=== PATIENT | male | born 1935 | race Caucasian/White ===

== ENCOUNTER → 2017-08-10 15:26 | Outpatient (CLI) | payer MEDICARE, BC, SELFPAY ==
[2017-08-10 18:08] LABS: AST(SGOT) 19 U/L (15-37); Alanine Aminotransfer ALT/SGPT 24 U/L (16-61); Albumin, Serum 3.9 g/dL (3.2-5.0); Alkaline Phosphatase 61 U/L (45-117); Bilirubin, Direct 0.22 mg/dL (0.00-0.30); Cholesterol 119 mg/dL (200); Globulin 2.8 g/dL (2.2-4.2); High Density Lipoprotein 64 mg/dL; Protein, Total 6.7 g/dL (6.4-8.2); Triglycerides 50 mg/dL; Very Low Density Lipoprotein 10 mg/dL (5-40)
== END ==
PROVIDERS: Family Provider Family Medicine; Visit Provider Family Medicine
DX: M19.90 Unspecified osteoarthritis, unspecified site (principal)
CPT/HCPCS: 36415; 80061; 80076

== ENCOUNTER 2019-01-14 12:52 | Inpatient (IN) | payer MEDICARE, BC, SELFPAY ==
[2019-01-14] VITALS (13 sets, daily range): BP systolic 87–106; BP diastolic 59–77; PULSE 48–68; RESP 15–24; TEMP 36.6–36.7; O2SAT 95–99; BMI 22.4; BMI 21.8
--- NOTE | 2019-01-14 13:21 | RAD_ITS ---
STUDY: X-RAY CHEST REASON FOR EXAM: Male, 83 years old. Shortness of breath and cough TECHNIQUE: PA and lateral views of the chest. COMPARISON: 2010 FINDINGS: EKG leads overlie the chest There are interstitial fibrotic changes of the lungs. There is no demonstrated pleural abnormality. Normal size heart. Normal mediastinum and brad. Normal visualized pulmonary arteries. Normal visualized aortic arch and descending thoracic aorta. There are diffuse degenerative changes of the visualized thoracic spine. Normal visualized ribs, clavicles, and shoulders. There is no demonstrated abnormality of the visualized soft tissue structures of the upper abdomen. RAD/Chest PA and Lateral IMPRESSION: Degenerative changes, as described above. No demonstrated acute cardiopulmonary process. Electronically Signed: Byron Lyle MD at 13:36 EDT , Service support ,
[2019-01-14 13:27] LABS: Absolute Lymphocyte Count 0.47 X10^3/uL (0.83-4.51); Basophil# 0.01 X10^3/uL; Basophil% 0.1 % (0-1); Hematocrit 36.1 % (40-54); Hemoglobin 12.4 g/dL (13.0-16.5); Lymphocyte # 0.47 X10^3/ul (4.0); Mean Corp Hgb Conc 34.3 g/dL (32-36); Mean Corpuscular Hgb 32.2 pg (27.0-32.0); Mean Corpuscular Volume 93.8 fL (80-94); Mean Platelet Vol. 11.2 fl (6.2-12.0); Monocyte# 1.21 X10^3/uL; Monocyte% 7.7 % (0-10); NRBC Flagged by Analyzer 0 % (0-5); Neutrophil # 13.96 X10^3/uL (2.7-7.7); Neutrophil % 88.8 % (47-70); POSITIVE DIFFERENTIAL YES; Platelet Count 135 K/mm3 (150-450); RBC Distribution Width SD 47.9 fl (35.1-43.9); Red Blood Count 3.85 M/mm3 (4.6-6.2); White Blood Count 15.7 K/mm3 (4.4-11.0)
[2019-01-14 13:35] LABS: Anion Gap 7 (5-15); BUN 45 mg/dL (7-18); BUN/Creat Ratio 24.5 RATIO (10-20); Calcium,Total 9.3 mg/dL (8.5-10.1); Chloride 104 mmol/L (98-107); Creatinine, Serum 1.84 mg/dL (0.70-1.30); EST Glomerular Filtration Rate 37 mL/min (>60); Est Glom Filt Rate - Afr Amer 45 mL/min (>60); Estimated Creatinine Clearance 29.73 ml/min; Glucose 140 mg/dL (74-106); Potassium 4.6 mmol/L (3.5-5.1); Sodium Level 135 mmol/L (136-145)
[2019-01-14 13:43] LABS: Lactic Acid 3.1 mmol/L (0.4-2.0)
--- NOTE | 2019-01-14 13:57 | EKG12_ITS ---
Test Reason : Blood Pressure : / mmHG Vent. Rate : 049 BPM Atrial Rate : 049 BPM P-R Int : 180 ms QRS Dur : 046 ms QT Int : 432 ms P-R-T Axes : 046 -44 -07 degrees QTc Int : 390 ms Sinus bradycardia with frequent Premature ventricular complexes in a pattern of bigeminy Left axis deviation Low voltage QRS Possible Lateral infarct , age undetermined Inferior infarct , age undetermined T wave abnormality, consider anterior ischemia Abnormal ECG Confirmed by FLORENTINO FUNES, ALFONZO ([id number]), make up editor JALEN LOERA ([id number]) on 01/17/2019 1:50:26 PM Referred By: Dieter Mcleod Confirmed By:NARENDRA GOOD MD
[2019-01-14 14:00] LABS: Differential Indicated SCAN CRITERIA MET
[2019-01-14 14:03] LABS: Platelet Estimate SLT DEC (ADEQ); Red Cell Morphology NORM C+C NORMAL (NORM C&C)
[2019-01-14] MEDS: 0.9% Normal Saline 1,000 ML 999 ML IV ×3 (14:09→16:18)
[2019-01-14 14:19] LABS: AST(SGOT) 225 U/L (15-37); Alanine Aminotransfer ALT/SGPT 73 U/L (16-61); Albumin, Serum 3.4 g/dL (3.2-5.0); Alkaline Phosphatase 76 U/L (45-117); Bilirubin, Direct 0.48 mg/dL (0.00-0.30); Protein, Total 6.4 g/dL (6.4-8.2)
[2019-01-14 14:39] LABS: Bacteria 0 SEEN /hpf (None Seen); Mucous, Urine 0 SEEN /hpf (<or=2+); Squamous Epithelial Cells - UA 0 SEEN /hpf (0-5); White Blood Cells 0 SEEN /hpf (0-5)
[2019-01-14 14:42] LABS: Color, Urine Yellow (Yellow); Glucose, Dipstick Normal (Normal); Ketone-Dipstick 5 mg/dl (Negative); Leukocyte Esterase-Dipstick 25 /ul (Negative); Nitrite-Dipstick Negative (Negative); Occult Blood-Urine Negative /ul (Negative); Protein-Dipstick 30 mg/dl (Negative); Specific Gravity, Urine 1.025 (1.002-1.030); Urine Clarity Clear (Clear); Urine Urobilinogen 1 mg/dl (Normal)
--- NOTE | 2019-01-14 14:43 | ED.RN ---
DR MANRIQUE NOTIFIED OF TROPONIN RESULT
[2019-01-14 14:49] LABS: Urine Bilirubin Dipstick 1 mg/dL (Negative)
[2019-01-14 14:54] LABS: Red Blood Cells-Urine 0-5 SEEN /hpf (0-5)
--- NOTE | 2019-01-14 15:46 | NURSING ---
DR NICK MANRIQUE
--- NOTE | 2019-01-14 15:55 | NURSING ---
108 NICK CATHERINE, DEHYDRATION
--- NOTE | 2019-01-14 16:00 | ED.VISSUMM ---
- ER Visit Summary Date of Service: 01/14/19 Chief Complaint: Weakness History of Present Illness: The patient is a 83 M who presents emerged department with generalized weakness. Patient lives at home with his he uses a walker and most recently has been working to get a knee replacement in [place]. On Thursday he went down to have presurgical testing. He had an EKG was told that this was abnormal that he should follow-up with cardiology talk about a stress test. He was then called yesterday and informed that his labs look like he showed dehydration they recommended he receive some IV fluids. On the way back from [place] 2 days ago he began to feel poorly. Since that time has had increasing difficulty getting out of bed. He has not been eating and drinking well. He denies any chest pain. His chronic neck pain chronic arm pain and chronic knee pain. No fevers. No shortness of breath or vomiting. Physical Examination: Afebrile heart rate of 57 respirations are 18 blood pressure 103/62 pulse ox 95% on room air Gen: Well-nourished well-developed Head: Normocephalic atraumatic Eyes: Perrl EOMI ENT: TMs clear no rhinorrhea moist mucous membranes Neck: Supple no lymphadenopathy no JVD nontender CVS: Regular bradycardic rhythm heart sounds are distant Respiratory: No distress clear to auscultation bilaterally chest nontender Abdomen: Soft nontender nondistended normal bowel sounds no masses Back: Nontender Extremity: Nontender no edema 3-second capillary refill Skin: Appears pale no rash Neuro: alert orientated ?3 CN II-XII intact normal strength sensation Test Results: EKG shows a sinus bradycardia with frequent ectopy. Low voltage. Q waves with inverted T waves inferiorly. White count 15.7 hemoglobin 12.4 BUN 45 creatinine 1.84. Lactic acid 3.1. Troponin 43.9. Chest x-ray negative. Emergency Department Course and Treatment: Patient received IV fluids. I discussed the case with cardiology. They recommended continued hydration as well as heparin drip. He has no rectal bleeding. Alethea case with Dr. Moraes from medicine who will be admitting. Family has been updated. Impression: 1. NSTEMI 2. Dehydration 3. Acute kidney injury This note was generated with [employer] dictation software. It may contain incorrect words, spelling, and punctuation that were not noted in review of the chart prior to signing ED Disposition - Plan for ED Patient: Referrals: Wale Obregon [Primary Care Provider] -
[2019-01-14] MEDS: Heparin Injection (Vial) 5,000 UNIT/ML VIAL 4500 UNIT IV (16:15)
[2019-01-14] MEDS: HEPARIN/D5w 25,000 UNITS 25,000 UNITS/250 ML IV.SOLN. 10 UNITS IV (16:15)
[2019-01-14 16:21] LABS: International Normalized Ratio 1.3; Prothrombin Time (Protime)PT. 16.2 SECONDS (11.7-14.9)
[2019-01-14 16:22] LABS: Partial Thromboplast Time 34.6 Seconds (24.1-36.2)
--- NOTE | 2019-01-14 16:38 | HP.PCM_ITS ---
Problem List (1) NSTEMI (non-ST elevated myocardial infarction) Status: Acute (2) KELLIE (acute kidney injury) Status: Acute History of Present Illness Date of Admission: 01/14/19 Chief Complaint: weakness The patient is a 83 year old M for the past 2 to 3 days, has been feeling weak. Went had some lab work performed at outside facility and had a notified him today that patient should come to the hospital because of his kidney function was abnormal. Presented to the emergency room and patient's creatinine was measured at 1.84, and had a creatinine of 1.31 from December 25, 2016. No additional blood work in the interim. Patient also was found to have a troponin of 43. Cardiology, with Dr. Hobson, was notified and advised patient being placed on heparin drip and would be seen by cardiology the following day. Patient is not having any chest pain. Patient is a poor historian so much of the history is obtained through the family as well as emergency room physician. [] Past Medical History Medical History: Medical History (Last Updated 01/14/19 @ 16:41 by Dieter Mcleod DO) Osteoarthritis M19.90 Allergies No Known Allergies Allergy (Verified 01/14/19 12:59) Home Medications: Ambulatory Orders Medication Instructions Recorded Aspirin [Aspir 81] 81 mg PO DAILY 01/14/19 Ketoconazole 1 applic TP UD 01/14/19 Temazepam 30 mg PO QHS 01/14/19 Terazosin HCl 5 mg PO DAILY 01/14/19 Lives: Spouse/ Significant Other Smoking Status: Never smoker Tobacco Use: Non-smoker Alcohol: None Drugs: None - *Family History Maternal History Items: - - Not able to adequately obtain as the patient is confused Review of Systems Comment: Not able to adequately obtain as patient is confused and goes off on tangents. Please refer to the HPI for further details. VTE Information - Inpt Only VTE Present on Admission: No VTE Mechan Device Prophylaxis: None VTE Pharm Prophylaxis ordered?: Yes Patient Problems: Active and Suspected Problems (Last Updated 01/14/19 @ 16:41 by Dieter Mcleod DO) NSTEMI (non-ST elevated myocardial infarction) (Acute) KELLIE (acute kidney injury) (Acute) - Physical Exam General: Cooperative, No apparent distress, Confused HEENT: Atraumatic, Normocephalic, - - No icterus Oral: Moist Mucosa, No Gingival or Mucosal Lesions/ Ulcerations Neck: No Nodes, Thyroid Normal Size and Texture Lungs: Clear to auscultation, Normal air movement, No rhonchi, No wheeze, No rales Cardiovascular: Regular rate, Regular Rhythm, Normal S1, Normal S2, No murmurs Abdomen: Bowel Sounds Present, Soft, Non Tender, Non-Distended, No Hepato- splenomegaly Extremities: No edema, No Calf Tenderness Skin: No rashes, No breakdown Musculoskeletal: No Tenderness to Palpation of Joints or Extremities, No Muscle Wasting Neurological: Motor Exam 5/5 strength throughout, - - No clonus. Psych/Mental Status: Flat Affect, Depressed Vital Signs Temp Pulse Resp BP Pulse Ox 36.6 C 55 L 18 94/59 L 97 01/14/19 12:52 01/14/19 16:17 01/14/19 16:17 01/14/19 16:17 01/14/19 16:17 Oxygen Delivery Method Room Air Weight: 69.1 kg Body Mass Index (BMI) 22.4 Laboratory Tests Past 24 Hrs 01/14/19 01/14/19 01/14/19 12:55 12:55 12:55 WBC 15.7 H RBC 3.85 L Hgb 12.4 L Hct 36.1 L MCV 93.8 MCH 32.2 H MCHC 34.3 RDW Std Deviation 47.9 H RDW Coeff of Nicolas 14.0 Plt Count 135 L MPV 11.2 Immature Gran % (Auto) 0.400 Neut % (Auto) 88.8 H Lymph % (Auto) 3.0 L [place] % (Auto) 7.7 Eos % (Auto) 0.0 Baso % (Auto) 0.1 Absolute Neuts (auto) 14.0 H Absolute Lymphs (auto) 0.47 L Absolute Nucleated RBC 0.00 Nucleated RBC % 0 Differential Comment Platelet Estimate SLT DEC RBC Morphology NORM C+C PT INR APTT Sodium 135 L Potassium 4.6 Chloride 104 Carbon Dioxide 24.0 Anion Gap 7 BUN 45 H Creatinine 1.84 H Estim Creat Clear Calc 29.73 Est GFR (MDRD) Af Amer 45 L Est GFR (MDRD) Non-Af 37 L BUN/Creatinine Ratio 24.5 H Glucose 140 H Lactic Acid 3.1 H Calcium 9.3 Total Bilirubin Direct Bilirubin AST ALT Alkaline Phosphatase Troponin I Total Protein Albumin Globulin Urine Color Urine Clarity Urine pH Ur Specific [place] Urine Protein Urine Glucose (UA) Urine Ketones Urine Occult Blood Urine Nitrite Urine Bilirubin Urine Urobilinogen Ur Leukocyte Esterase Urine RBC Urine WBC Ur Squamous Epith Cells Urine Bacteria Urine Mucus 01/14/19 01/14/19 01/14/19 12:55 12:55 12:55 WBC RBC Hgb Hct MCV MCH MCHC RDW Std Deviation RDW Coeff of Nicolas Plt Count MPV Immature Gran % (Auto) Neut % (Auto) Lymph % (Auto) [place] % (Auto) Eos % (Auto) Baso % (Auto) Absolute Neuts (auto) Absolute Lymphs (auto) Absolute Nucleated RBC Nucleated RBC % Differential Comment Platelet Estimate RBC Morphology PT Pending INR Pending APTT Pending Sodium Potassium Chloride Carbon Dioxide Anion Gap BUN Creatinine Estim Creat Clear Calc Est GFR (MDRD) Af Amer Est GFR (MDRD) Non-Af BUN/Creatinine Ratio Glucose Lactic Acid Calcium Total Bilirubin 1.30 H Direct Bilirubin 0.48 H AST 225 H ALT 73 H Alkaline Phosphatase 76 Troponin I 43.900 H* Total Protein 6.4 Albumin 3.4 Globulin 3.0 Urine Color Urine Clarity Urine pH Ur Specific [place] Urine Protein Urine Glucose (UA) Urine Ketones Urine Occult Blood Urine Nitrite Urine Bilirubin Urine Urobilinogen Ur Leukocyte Esterase Urine RBC Urine WBC Ur Squamous Epith Cells Urine Bacteria Urine Mucus 01/14/19 14:32 WBC RBC Hgb Hct MCV MCH MCHC RDW Std Deviation RDW Coeff of Nicolas Plt Count MPV Immature Gran % (Auto) Neut % (Auto) Lymph % (Auto) [place] % (Auto) Eos % (Auto) Baso % (Auto) Absolute Neuts (auto) Absolute Lymphs (auto) Absolute Nucleated RBC Nucleated RBC % Differential Comment Platelet Estimate RBC Morphology PT INR APTT Sodium Potassium Chloride Carbon Dioxide Anion Gap BUN Creatinine Estim Creat Clear Calc Est GFR (MDRD) Af Amer Est GFR (MDRD) Non-Af BUN/Creatinine Ratio Glucose Lactic Acid Calcium Total Bilirubin Direct Bilirubin AST ALT Alkaline Phosphatase Troponin I Total Protein Albumin Globulin Urine Color Yellow Urine Clarity Clear Urine pH 5.0 Ur Specific [place] 1.025 Urine Protein 30 H Urine Glucose (UA) Normal Urine Ketones 5 H Urine Occult Blood Negative Urine Nitrite Negative Urine Bilirubin 1 H Urine Urobilinogen 1 H Ur Leukocyte Esterase 25 H Urine RBC 0-5 SEEN Urine WBC 0 SEEN Ur Squamous Epith Cells 0 SEEN Urine Bacteria 0 SEEN Urine Mucus 0 SEEN EKG personally reviewed and showed normal sinus rhythm without any acute changes. Chest x-ray personally reviewed and showed no pulmonary infiltrates nor edema. Calcification of the aorta. Assessment/Plan All Active Problems (Last Updated 01/14/19 @ 16:41 by Dieter Mcleod DO) NSTEMI (non-ST elevated myocardial infarction) (Acute) KELLIE (acute kidney injury) (Acute) 1. Non-STEMI * EKG showed no acute process * Cardiology contacted from the emergency room and advised medical treatment at this time and they will evaluate on the . Patient has been started on heparin drip and will continue. * I discussed with the family about the possibility of a left heart cath eterization * We will perform an echocardiogram to see if there is any cardiac dysfunction * Patient already on aspirin and will continue * Check a lipid panel in the a.m. * Cycle troponins as it is unclear if the troponins are trending up or trending down * Not a candidate for beta-dm given bradycardia at this time 2. Acute kidney injury * Presumed as I do not have any recent lab work to compare to * Continue with IV fluids * Follow-up lab work in the a.m. 3. Possible dementia * Family states that the patient has good long-term memory but does have difficulty with short-term memories * Explained that patient should be evaluated for dementia and recommend outpatient evaluation with geriatrics * Will check for reversible causes of dementia with TSH, 25 hydroxy vitamin D, B12 and folate levels * Patient has not driven for 6 to 12 months patient is to get behind the wheel again he should have a formal geriatric assessment to ensure that he is safe behind the wheel 4. Debility * Suspected * No overt falls at home per the family * Will have physical and occupational therapy evaluate the patient 5. VTE prophylaxis: Low risk at this time as patient is already anticoagulated with a heparin drip. If anticoagulation is discontinued, the patient's risk profile likely be moderate and warranting some other VTE prophylaxis whether mechanical or chemical. 6. Osteoarthritis: Patient was planned to have a hip replacement in the coming weeks. Patient does have to have cardiac catheterization with stent that will need to be held off for at least a year. This information was not relayed to the patient/ Advanced care planning: Spent roughly 18 minutes discussing with the family about advanced directives, the difference between advanced directives and living will and specifically what is included in cardiopulmonary resuscitation. They expressed they have never formally talked about it and they do not have a decision at this time. I told him that I would leave the patient is full CODE STATUS unless they decide otherwise. I did actually encourage DNR Comfort Care arrest feel the patient would survive cardiopulmonary arrest. I did encourage them to talk further about this and that this conversation does not have to take place during this hospitalization. Code Visit Inpatient E&M: 56414 Init Hosp L3 Procedures: 32712 Advncd Care Plan 30 Min
--- NOTE | 2019-01-14 16:38 | ECHOD_ITS ---
Reason For Study: NSTEMI Procedure This was a 2D Doppler, Color Flow transthoracic echocardiogram. The study was technically limited. Technically limited d/t pt confused status. Exam performed portable in patient room. Left Ventricle Normal size and thickness. The estimated ejection fraction is 40-45 %. Hypokinesis of the inferior wall and inferoseptum. Right Ventricle Severely dilated right ventricle. Severe global right ventricular systolic dysfunction. Atria Normal left atrium. The right atrium is severely enlarged. Mitral Valve There is no mitral valve stenosis. Mild (1+) mitral valve insufficiency. Tricuspid Valve There is no tricuspid stenosis. Unable to estimate RV systolic pressure due to insufficient tricuspid regurgitant envelope. Mild tricuspid valve insufficiency. Aortic Valve Trisinus/trileaflet aortic valve. Aortic sclerosis, no stenosis. Mild (1+) aortic valve insufficiency. Pulmonic Valve There is no pulmonic valvular stenosis. No pulmonic valve insufficiency. Great Vessels Normal aortic root. Pericardium/Pleural No pericardial effusion. MMode/2D Measurements & Calculations LVIDd: 4.7 cm IVSd: 1.0 cm Ao root diam: 3.6 cm LVIDs: 3.9 cm LVPWd: 1.1 cm RVDd: 4.3 cm FS: 18.6 % LAV(MOD-bp): 40.4 ml LVAd ap4: 23.2 cm2 SV(MOD-sp4): 23.9 ml LAV(MOD-bp) Indexed: 22.3 ml/m2 EDV(MOD-sp4): 59.1 ml LAV(MOD-sp2): 45.4 ml EDV(sp4-el): 62.1 ml LAV(MOD-sp4): 39.2 ml LVAs ap4: 16.4 cm2 ESV(MOD-sp4): 35.2 ml ESV(sp4-el): 36.5 ml EF(MOD-sp4): 40.5 % EF(sp4-el): 41.2 % SV(sp4-el): 25.6 ml LA A4 area: 16.5 cm2 LA dimension(2D): 4.5 cm RA A4 area: 25.4 cm2 Doppler Measurements & Calculations Ao V2 max: 119.3 cm/sec AI max kennedy: 410.1 cm/sec LV V1 max: 71.4 cm/sec Ao max P.7 mmHg AI max P.3 mmHg LV V1 max P.0 mmHg AI dec slope: 197.7 cm/sec2 AI P1/2t: 607.6 msec Interpretation Summary The estimated ejection fraction is 40-45 %. Hypokinesis of the inferior wall and inferoseptum. Severe global right ventricular systolic dysfunction. Severely dilated right ventricle. The right atrium is severely enlarged. Mild (1+) mitral valve insufficiency. Aortic sclerosis, no stenosis. Mild (1+) aortic valve insufficiency. Ordering Physician: Dieter Mcleod Referring Physician: LOUIE MADRID Performed By: Tabby Martin, SRICS, RVT
[2019-01-14 17:22] LABS: Reflex Lactate? Y
[2019-01-14] MEDS: 0.9% Normal Saline 1,000 ML 100 ML IV (17:34)
[2019-01-14 18:28] LABS: Lactic Acid 2.6 mmol/L (0.4-2.0)
--- NOTE | 2019-01-14 19:54 | EKG12_ITS ---
Test Reason : CP Blood Pressure : / mmHG Vent. Rate : 060 BPM Atrial Rate : 075 BPM P-R Int : 000 ms QRS Dur : 066 ms QT Int : 396 ms P-R-T Axes : 000 -54 -10 degrees QTc Int : 396 ms Atrial fibrillation Left axis deviation Low voltage QRS Inferior infarct , age undetermined Anterolateral infarct , age undetermined Abnormal ECG When compared with ECG of 14-JAN-2019 13:16, MANUAL COMPARISON REQUIRED, DATA IS UNCONFIRMED Confirmed by KEEGAN RODRÍGUEZ ([id number]), film and video editor JALEN LOERA ([id number]) on 01/21/2019 9:00:18 AM Referred By: Dieter Mcleod Confirmed By:KEEGAN RODRÍGUEZ
--- NOTE | 2019-01-14 21:01 | EKG12_ITS ---
Test Reason : CP Blood Pressure : / mmHG Vent. Rate : 054 BPM Atrial Rate : 054 BPM P-R Int : 128 ms QRS Dur : 056 ms QT Int : 414 ms P-R-T Axes : 021 -46 -13 degrees QTc Int : 392 ms Sinus bradycardia with Premature atrial complexes in a pattern of bigeminy Left axis deviation Low voltage QRS Possible Lateral infarct , age undetermined Inferior infarct , age undetermined Abnormal ECG When compared with ECG of 14-JAN-2019 20:17, MANUAL COMPARISON REQUIRED, DATA IS UNCONFIRMED Confirmed by KEEGAN RODRÍGUEZ ([id number]), supervising film or videotape editor JALEN LOERA ([id number]) on 01/21/2019 9:00:45 AM Referred By: Dieter Mcleod Confirmed By:KEEGAN RODRÍGUEZ
[2019-01-14 22:36] LABS: Partial Thromboplast Time 219.3 Seconds (24.1-36.2)
[2019-01-15] VITALS (13 sets, daily range): BP systolic 92–110; BP diastolic 49–72; PULSE 34–87; RESP 15–24; TEMP 36.7–38.3; O2SAT 93–96
--- NOTE | 2019-01-15 00:10 | NURSING ---
This RN and lost charge card clerk educated patient about safety, comfort, PCU, POC, sleep. Patient refused dysphagia screen and restoril. Patient alert to self only, restless, climbing out of bed and paranoid. Patient states, I don't know if that is really water or what kind of pill that is. My is cheating on me and taking my money. Kotsonis at bedside and patient continues to refuse. Sitter at bedside at this time.
[2019-01-15 03:08] LABS: Partial Thromboplast Time 85.9 Seconds (24.1-36.2)
[2019-01-15 09:26] LABS: Absolute Lymphocyte Count 0.53 X10^3/uL (0.83-4.51); Absolute Neutrophil Count 14.3 X10^3/uL (2.0-7.7); Basophil# 0.01 X10^3/uL; Basophil% 0.1 % (0-1); Hematocrit 35.8 % (40-54); Hemoglobin 11.8 g/dL (13.0-16.5); Lymphocyte # 0.53 X10^3/ul (4.0); Lymphocyte % 3.3 % (19-41); Mean Corpuscular Hgb 31.4 pg (27.0-32.0); Mean Corpuscular Volume 95.2 fL (80-94); Mean Platelet Vol. 11.1 fl (6.2-12.0); Monocyte# 1.07 X10^3/uL; Monocyte% 6.7 % (0-10); NRBC Flagged by Analyzer 0 % (0-5); Neutrophil # 14.34 X10^3/uL (2.7-7.7); Neutrophil % 89.6 % (47-70); POSITIVE DIFFERENTIAL YES; Platelet Count 148 K/mm3 (150-450); RBC Distribution Width CV 14.3 % (11.6-14.6); RBC Distribution Width SD 50.2 fl (35.1-43.9); Red Blood Count 3.76 M/mm3 (4.6-6.2)
[2019-01-15 09:29] LABS: Differential Indicated SCAN CRITERIA MET
[2019-01-15 09:35] LABS: Partial Thromboplast Time 60.3 Seconds (24.1-36.2)
[2019-01-15 09:40] LABS: Differential Comment SCANNED
[2019-01-15 09:59] LABS: Anion Gap 11 (5-15); BUN 44 mg/dL (7-18); BUN/Creat Ratio 31.4 RATIO (10-20); Calcium,Total 8.7 mg/dL (8.5-10.1); Chloride 110 mmol/L (98-107); Cholesterol 109 mg/dL (200); EST Glomerular Filtration Rate 51 mL/min (>60); Est Glom Filt Rate - Afr Amer 62 mL/min (>60); Estimated Creatinine Clearance 37.94 ml/min; Glucose 115 mg/dL (74-106); High Density Lipoprotein 55 mg/dL; Potassium 4.5 mmol/L (3.5-5.1); Sodium Level 142 mmol/L (136-145); Triglycerides 64 mg/dL; Very Low Density Lipoprotein 13 mg/dL (5-40)
--- NOTE | 2019-01-15 10:15 | PN_ITS ---
Patient Problems: Active and Suspected Problems (Last Updated 01/14/19 @ 16:41 by Dieter Mcleod DO) Right ventricular failure (Acute) Lactic acidosis (Acute) Elevated LFTs (Acute) Acute kidney injury superimposed on CKD (Acute) NSTEMI (non-ST elevated myocardial infarction) (Acute) Subjective: Chief complaint: Follow-up after admission for acute non-STEMI, KELLIE on CKD, elevated LFT and mild lactic acidosis. Patient seen and examined. Nursing staff reported that patient has been confused overnight, trying to get out of bed. This morning, he is alert to himself, knows his full name and date of but he is disoriented to time and place. He denied chest pain or shortness of breath. He denied abdominal pain, nausea or vomiting. He is afebrile, heart rate has been in the 60s, blood pressure is maintained, pulse ox 96% on 1 L of oxygen. Later this afternoon, patient's family including patient's and son came. According to the patient's , patient has been having issues with being forgetful, forgets names and usually he is alert and related x3. She mentioned that over the last several days, he has been more confused and disoriented. - Physical Exam General: Alert, Cooperative, No apparent distress, Confused, Disoriented, - - Oriented only to himself. HEENT: Atraumatic, PERRLA, EOMI, Normocephalic Oral: No Gingival or Mucosal Lesions/ Ulcerations, Dry Mucosa Neck: Supple, No JVD, Negative Carotid Bruits, Trachea Midline, Thyroid Normal Size and Texture Lungs: Clear to auscultation, No rhonchi, No wheeze, No rales, Diminished, - - Decreased breath sounds bilateral, more at the bases, otherwise clear. Cardiovascular: Regular rate, Regular Rhythm, Normal S1, Normal S2, PMI Normal, Bradycardic Abdomen: Bowel Sounds Present, Soft, Non Tender, Non-Distended, No Hepato- splenomegaly Extremities: No clubbing, No cyanosis, No edema Skin: No rashes, No breakdown Lymphatic: No Cervical, Supraclavicular, or Inguinal Adenopathy Neurological: Cranial nerves II-XII grossly intact, Motor Exam 5/5 strength throughout Psych/Mental Status: Normal Affect, Flat Affect Vital Signs Temp Pulse Resp BP Pulse Ox 98.2 F 79 15 110/72 96 01/15/19 04:50 01/15/19 07:50 01/15/19 04:50 01/15/19 04:50 01/15/19 07:51 Oxygen Flow Rate (L/min) 1 Oxygen Delivery Method Nasal Cannula Weight: 147 lb 14.883 oz Body Mass Index (BMI) 21.8 Intake and Output for Last 24 Hours 01/13/19 01/14/19 01/15/19 23:59 23:59 23:59 Intake Total 240 / 1018 1007.2 / 1007.2 Balance 240 / 1018 1007.2 / 1007.2 Laboratory Tests Past 24 Hrs 01/14/19 01/14/19 01/14/19 12:55 12:55 12:55 WBC 15.7 H RBC 3.85 L Hgb 12.4 L Hct 36.1 L MCV 93.8 MCH 32.2 H MCHC 34.3 RDW Std Deviation 47.9 H RDW Coeff of Nicolas 14.0 Plt Count 135 L MPV 11.2 Immature Gran % (Auto) 0.400 Neut % (Auto) 88.8 H Lymph % (Auto) 3.0 L [place] % (Auto) 7.7 Eos % (Auto) 0.0 Baso % (Auto) 0.1 Absolute Neuts (auto) 14.0 H Absolute Lymphs (auto) 0.47 L Absolute Nucleated RBC 0.00 Nucleated RBC % 0 Differential Comment Platelet Estimate SLT DEC RBC Morphology NORM C+C PT INR APTT Sodium 135 L Potassium 4.6 Chloride 104 Carbon Dioxide 24.0 Anion Gap 7 BUN 45 H Creatinine 1.84 H Estim Creat Clear Calc 29.73 Est GFR (MDRD) Af Amer 45 L Est GFR (MDRD) Non-Af 37 L BUN/Creatinine Ratio 24.5 H Glucose 140 H Lactic Acid 3.1 H Calcium 9.3 Total Bilirubin Direct Bilirubin AST ALT Alkaline Phosphatase Troponin I Total Protein Albumin Globulin Triglycerides Cholesterol LDL Cholesterol VLDL Cholesterol HDL Cholesterol Vitamin B12 Vitamin D 25-Hydroxy RBC Folate Hemolysate RBC Folate Hematocrit TSH Urine Color Urine Clarity Urine pH Ur Specific [place] Urine Protein Urine Glucose (UA) Urine Ketones Urine Occult Blood Urine Nitrite Urine Bilirubin Urine Urobilinogen Ur Leukocyte Esterase Urine RBC Urine WBC Ur Squamous Epith Cells Urine Bacteria Urine Mucus 01/14/19 01/14/19 01/14/19 12:55 12:55 12:55 WBC RBC Hgb Hct MCV MCH MCHC RDW Std Deviation RDW Coeff of Nicolas Plt Count MPV Immature Gran % (Auto) Neut % (Auto) Lymph % (Auto) [place] % (Auto) Eos % (Auto) Baso % (Auto) Absolute Neuts (auto) Absolute Lymphs (auto) Absolute Nucleated RBC Nucleated RBC % Differential Comment Platelet Estimate RBC Morphology PT 16.2 H INR 1.3 APTT 34.6 Sodium Potassium Chloride Carbon Dioxide Anion Gap BUN Creatinine Estim Creat Clear Calc Est GFR (MDRD) Af Amer Est GFR (MDRD) Non-Af BUN/Creatinine Ratio Glucose Lactic Acid Calcium Total Bilirubin 1.30 H Direct Bilirubin 0.48 H AST 225 H ALT 73 H Alkaline Phosphatase 76 Troponin I 43.900 H* Total Protein 6.4 Albumin 3.4 Globulin 3.0 Triglycerides Cholesterol LDL Cholesterol VLDL Cholesterol HDL Cholesterol Vitamin B12 Vitamin D 25-Hydroxy RBC Folate Hemolysate RBC Folate Hematocrit TSH Urine Color Urine Clarity Urine pH Ur Specific [place] Urine Protein Urine Glucose (UA) Urine Ketones Urine Occult Blood Urine Nitrite Urine Bilirubin Urine Urobilinogen Ur Leukocyte Esterase Urine RBC Urine WBC Ur Squamous Epith Cells Urine Bacteria Urine Mucus 01/14/19 01/14/19 01/14/19 14:32 17:05 17:46 WBC RBC Hgb Hct MCV MCH MCHC RDW Std Deviation RDW Coeff of Nicolas Plt Count MPV Immature Gran % (Auto) Neut % (Auto) Lymph % (Auto) [place] % (Auto) Eos % (Auto) Baso % (Auto) Absolute Neuts (auto) Absolute Lymphs (auto) Absolute Nucleated RBC Nucleated RBC % Differential Comment Platelet Estimate RBC Morphology PT INR APTT Sodium Potassium Chloride Carbon Dioxide Anion Gap BUN Creatinine Estim Creat Clear Calc Est GFR (MDRD) Af Amer Est GFR (MDRD) Non-Af BUN/Creatinine Ratio Glucose Lactic Acid 2.6 H Calcium Total Bilirubin Direct Bilirubin AST ALT Alkaline Phosphatase Troponin I 37.000 H* Total Protein Albumin Globulin Triglycerides Cholesterol LDL Cholesterol VLDL Cholesterol HDL Cholesterol Vitamin B12 Vitamin D 25-Hydroxy RBC Folate Hemolysate RBC Folate Hematocrit TSH Urine Color Yellow Urine Clarity Clear Urine pH 5.0 Ur Specific [place] 1.025 Urine Protein 30 H Urine Glucose (UA) Normal Urine Ketones 5 H Urine Occult Blood Negative Urine Nitrite Negative Urine Bilirubin 1 H Urine Urobilinogen 1 H Ur Leukocyte Esterase 25 H Urine RBC 0-5 SEEN Urine WBC 0 SEEN Ur Squamous Epith Cells 0 SEEN Urine Bacteria 0 SEEN Urine Mucus 0 SEEN 01/14/19 01/14/19 01/15/19 20:10 22:15 02:53 WBC RBC Hgb Hct MCV MCH MCHC RDW Std Deviation RDW Coeff of Nicolas Plt Count MPV Immature Gran % (Auto) Neut % (Auto) Lymph % (Auto) [place] % (Auto) Eos % (Auto) Baso % (Auto) Absolute Neuts (auto) Absolute Lymphs (auto) Absolute Nucleated RBC Nucleated RBC % Differential Comment Platelet Estimate RBC Morphology PT INR APTT 219.3 H* 85.9 H Sodium Potassium Chloride Carbon Dioxide Anion Gap BUN Creatinine Estim Creat Clear Calc Est GFR (MDRD) Af Amer Est GFR (MDRD) Non-Af BUN/Creatinine Ratio Glucose Lactic Acid Calcium Total Bilirubin Direct Bilirubin AST ALT Alkaline Phosphatase Troponin I 36.700 H* Total Protein Albumin Globulin Triglycerides Cholesterol LDL Cholesterol VLDL Cholesterol HDL Cholesterol Vitamin B12 Vitamin D 25-Hydroxy RBC Folate Hemolysate RBC Folate Hematocrit TSH Urine Color Urine Clarity Urine pH Ur Specific [place] Urine Protein Urine Glucose (UA) Urine Ketones Urine Occult Blood Urine Nitrite Urine Bilirubin Urine Urobilinogen Ur Leukocyte Esterase Urine RBC Urine WBC Ur Squamous Epith Cells Urine Bacteria Urine Mucus 01/15/19 01/15/19 01/15/19 09:15 09:15 09:15 WBC 16.0 H RBC 3.76 L Hgb 11.8 L Hct 35.8 L MCV 95.2 H MCH 31.4 MCHC 33.0 RDW Std Deviation 50.2 H RDW Coeff of Nicolas 14.3 Plt Count 148 L MPV 11.1 Immature Gran % (Auto) 0.300 Neut % (Auto) 89.6 H Lymph % (Auto) 3.3 L Baldwin % (Auto) 6.7 Eos % (Auto) 0.0 Baso % (Auto) 0.1 Absolute Neuts (auto) 14.3 H Absolute Lymphs (auto) 0.53 L Absolute Nucleated RBC 0.00 Nucleated RBC % 0 Differential Comment SCANNED Platelet Estimate RBC Morphology PT INR APTT Sodium 142 Potassium 4.5 Chloride 110 H Carbon Dioxide 21.0 Anion Gap 11 BUN 44 H Creatinine 1.40 H Estim Creat Clear Calc 37.94 Est GFR (MDRD) Af Amer 62 Est GFR (MDRD) Non-Af 51 L BUN/Creatinine Ratio 31.4 H Glucose 115 H Lactic Acid Calcium 8.7 Total Bilirubin Direct Bilirubin AST ALT Alkaline Phosphatase Troponin I Total Protein Albumin Globulin Triglycerides 64 Cholesterol 109 LDL Cholesterol 41 VLDL Cholesterol 13 HDL Cholesterol 55 Vitamin B12 Pending Vitamin D 25-Hydroxy Pending RBC Folate Hemolysate RBC Folate Hematocrit TSH 1.70 Urine Color Urine Clarity Urine pH Ur Specific [place] Urine Protein Urine Glucose (UA) Urine Ketones Urine Occult Blood Urine Nitrite Urine Bilirubin Urine Urobilinogen Ur Leukocyte Esterase Urine RBC Urine WBC Ur Squamous Epith Cells Urine Bacteria Urine Mucus 01/15/19 01/15/19 09:15 09:15 WBC RBC Hgb Hct MCV MCH MCHC RDW Std Deviation RDW Coeff of Nicolas Plt Count MPV Immature Gran % (Auto) Neut % (Auto) Lymph % (Auto) [place] % (Auto) Eos % (Auto) Baso % (Auto) Absolute Neuts (auto) Absolute Lymphs (auto) Absolute Nucleated RBC Nucleated RBC % Differential Comment Platelet Estimate RBC Morphology PT INR APTT 60.3 H Sodium Potassium Chloride Carbon Dioxide Anion Gap BUN Creatinine Estim Creat Clear Calc Est GFR (MDRD) Af Amer Est GFR (MDRD) Non-Af BUN/Creatinine Ratio Glucose Lactic Acid Calcium Total Bilirubin Direct Bilirubin AST ALT Alkaline Phosphatase Troponin I Total Protein Albumin Globulin Triglycerides Cholesterol LDL Cholesterol VLDL Cholesterol HDL Cholesterol Vitamin B12 Vitamin D 25-Hydroxy RBC Folate Hemolysate Pending RBC Folate Pending Hematocrit Pending TSH Urine Color Urine Clarity Urine pH Ur Specific [place] Urine Protein Urine Glucose (UA) Urine Ketones Urine Occult Blood Urine Nitrite Urine Bilirubin Urine Urobilinogen Ur Leukocyte Esterase Urine RBC Urine WBC Ur Squamous Epith Cells Urine Bacteria Urine Mucus Clinical Impression(s) from Imaging Studies Chest X-Ray 01/14/19 13:21 IMPRESSION: Degenerative changes, as described above. No demonstrated acute cardiopulmonary process. Electronically Signed: Byron Lyle MD at 13:36 EDT , Service support , Medical Necessity - Tobacco Use Smoking Status: Former smoker Tobacco Use: Non-smoker Assessment/Plan All Active Problems (Last Updated 01/14/19 @ 16:41 by Dieter Mcleod DO) Right ventricular failure (Acute) Lactic acidosis (Acute) Elevated LFTs (Acute) Acute kidney injury superimposed on CKD (Acute) NSTEMI (non-ST elevated myocardial infarction) (Acute) This is an 83 years old male patient admitted because of weakness, found to have acute non-ST elevation VT, acute kidney injury on top of stage III chronic kidney disease, elevated LFT and acute right ventricular failure as well as worsening confusion/encephalopathy. #1 acute non-ST elevation VT/acute right ventricular failure: EKG reviewed, revealed sinus bradycardia and PVCs, no acute ST elevation. Troponin is 43, trending down and it was 36 this morning. Patient is chest pain-free. He is on IV heparin drip, aspirin, Plavix. Cardiology consulted. At this time, heart rate has been in the 80s, blood pressure is maintained. Pulse ox is 95% on 1 L. Chest x-ray showed no acute findings. 2D echocardiogram revealed ejection fraction of 40 to 45%, severe global right ventricular systolic function, severely dilated right ventricle, hypokinesis of the inferior wall and inferoseptal wall. Patient is on IV fluids. We cannot start beta-blockers or ANTONIO inhibitor because of bradycardia and worsening kidney function respectively. Plan: Continue IV fluids, repeat CBC and BMP tomorrow morning. Patient may go for cardiac catheterization according to cardiology if his confusion and disorientation is new or acute. #2 encephalopathy/confusion: In context of history of suspected mild dementia, getting worse nowadays according to the patient's . He has no focal deficit. This is likely because of acute illness, VT and KELLIE. Plan: CT scan brain. #3 acute kidney injury on top of stage III chronic kidney disease: Baseline creatinine has been around 1.3 to 1.4 mg/dL. Admission creatinine is 1.84, came down to 1.40 today with IV fluids. Plan to continue IV fluids, repeat BMP tomorrow morning. #4 elevated LFT: Patient denied any right upper quadrant abdominal pain. No tenderness or Rico sign on physical examination. This is probably due to liver congestion secondary to acute right ventricular failure. Plan to monitor. #5 lactic acidosis?leukocytosis: Lactic acid is 3.1, came down to 2.6 with IV fluids. This is probably due to tissue hypoperfusion secondary to RV failure. Chest x-ray showed no acute infiltrate or consolidation. UA was negative for acute cystitis. Patient has been afebrile. Leukocytosis likely reactive. Blood cultures are pending. At this time, no indication for IV antibiotics. Plan to repeat CBC tomorrow morning, monitor. #6 DVT prophylaxis: On IV heparin drip. This note was generated with zLenseation software. It may contain incorrect words, spelling, and punctuation that were not noted in checking the note before signing. Code Visit Inpatient E&M: 33739 Subs Hosp L3
[2019-01-15 10:39] LABS: Lipase 33 U/L (73-393)
--- NOTE | 2019-01-15 11:07 | NURSING ---
Sitter removed at this time.
[2019-01-15] MEDS: Doxazosin 4 MG Tablet PO (11:20)
[2019-01-15] MEDS: Aspirin E.C. 81 MG Tablet PO (11:20)
[2019-01-15] MEDS: 0.9% Normal Saline 1,000 ML 75 ML IV ×2 (11:20→22:53)
--- NOTE | 2019-01-15 12:07 | CON.PCM_ITS ---
Problem List (1) NSTEMI (non-ST elevated myocardial infarction) Status: Acute Reason for Consult Date of Consultation: 01/15/19 Reason for Consultation: Acute coronary syndrome History of Present Illness: The patient is a 83 M who presents to the emergency department with generalized weakness. She is a poor historian. He is only oriented to name at this time. Most of the history is obtained from patient's medical records. Patient lives at home with his he uses a walker and most recently has been working to get a knee replacement in [place]. On Thursday he went down to have presurgical testing. He had an EKG was told that this was abnormal that he should follow-up with cardiology talk about a stress test. He was then called yesterday and informed that his labs look like he showed dehydration they recommended he receive some IV fluids. On the way back from [place] 2 days ago he began to feel poorly. Since that time has had increasing difficulty getting out of bed. He has not been eating and drinking well. He denies any chest pain. His chronic neck pain chronic arm pain and chronic knee pain. No fevers. No shortness of breath or vomiting. Patient's troponin was found to be 43.9. Patient denies any chest pain, shortness of breath etc. His troponin has been trending down. Initially his lactic acid level was 3.1 and this has come down to 2.6. His creatinine was 1.8 and with IV fluids this has come down to 1.4 which is closer to his baseline. Review of systems: Patient is unable to give a good review of systems as he is confused. Past Medical History Allergies/Adverse Reactions: Allergies No Known Allergies Allergy (Verified 01/14/19 12:59) Home Medications: Ambulatory Orders Medication Instructions Recorded Aspirin [Aspir 81] 81 mg PO DAILY 01/14/19 Ketoconazole 1 applic TP UD 01/14/19 Temazepam 30 mg PO QHS 01/14/19 Terazosin HCl 5 mg PO DAILY 01/14/19 Past Medical History (Chronic Problems): Chronic Problems (Last Updated 01/14/19 @ 16:41 by Dieter Mcleod DO) Stage III chronic kidney disease (Chronic) - *Family History Maternal History Items: - - Not able to adequately obtain as the patient is confused Lives: Spouse/ Significant Other Smoking Status: Former smoker Tobacco Use: Non-smoker Alcohol: None Drugs: None Objective: Vital Signs Temp Pulse Resp BP Pulse Ox 98.7 F 87 16 103/61 95 01/15/19 09:50 01/15/19 09:50 01/15/19 09:50 01/15/19 09:50 01/15/19 09:50 Oxygen Flow Rate (L/min) 1 Oxygen Delivery Method Room Air Weight: 147 lb 14.883 oz Body Mass Index (BMI) 21.8 Intake and Output for Last 24 Hours 01/13/19 01/14/19 01/15/19 23:59 23:59 23:59 Intake Total 240 / 1018 1092.2 / 1092.2 Balance 240 / 1018 1092.2 / 1092.2 General: Awake, Alert, - - Oriented only to name. HEENT: Atraumatic Oral: Moist Mucosa Neck: Supple Lungs: Clear to auscultation Cardiovascular: Normal S1, Normal S2 Abdomen: Soft Extremities: No edema Psych/Mental Status: - - Patient is confused. 01/14/19 12:55: Lactic Acid 3.1 H 01/14/19 12:55: WBC 15.7 H, RBC 3.85 L, Hgb 12.4 L, Hct 36.1 L, MCV 93.8, MCH 32.2 H, MCHC 34.3, Plt Count 135 L, MPV 11.2, Immature Gran % (Auto) 0.400, Neut % (Auto) 88.8 H, Lymph % (Auto) 3.0 L, [place] % (Auto) 7.7, Eos % (Auto) 0.0, Baso % (Auto) 0.1, Absolute Neuts (auto) 14.0 H, Nucleated RBC % 0 01/14/19 12:55: Sodium 135 L, Potassium 4.6, Chloride 104, Carbon Dioxide 24.0, Anion Gap 7, BUN 45 H, Creatinine 1.84 H, Est GFR (MDRD) Af Amer 45 L, Est GFR (MDRD) Non-Af 37 L, BUN/Creatinine Ratio 24.5 H, Glucose 140 H, Calcium 9.3 01/14/19 12:55: Total Bilirubin 1.30 H, Direct Bilirubin 0.48 H 01/14/19 12:55: Troponin I 43.900 H* 01/14/19 12:55: PT 16.2 H, INR 1.3, APTT 34.6 01/14/19 14:32: Urine Color Yellow, Urine Clarity Clear, Urine pH 5.0, Ur Specific [place] 1.025, Urine Protein 30 H, Urine Glucose (UA) Normal, Urine Ketones 5 H, Urine Occult Blood Negative, Urine Nitrite Negative, Urine Bilirubin 1 H, Urine Urobilinogen 1 H, Ur Leukocyte Esterase 25 H, Urine RBC 0-5 SEEN, Urine WBC 0 SEEN 01/14/19 17:05: Troponin I 37.000 H* 01/14/19 17:46: Lactic Acid 2.6 H 01/14/19 20:10: Troponin I 36.700 H* 01/14/19 22:15: APTT 219.3 H* 01/15/19 02:53: APTT 85.9 H 01/15/19 09:15: WBC 16.0 H, RBC 3.76 L, Hgb 11.8 L, Hct 35.8 L, MCV 95.2 H, MCH 31.4, MCHC 33.0, Plt Count 148 L, MPV 11.1, Immature Gran % (Auto) 0.300, Neut % (Auto) 89.6 H, Lymph % (Auto) 3.3 L, [place] % (Auto) 6.7, Eos % (Auto) 0.0, Baso % (Auto) 0.1, Absolute Neuts (auto) 14.3 H, Nucleated RBC % 0 01/15/19 09:15: Sodium 142, Potassium 4.5, Chloride 110 H, Carbon Dioxide 21.0, Anion Gap 11, BUN 44 H, Creatinine 1.40 H, Est GFR (MDRD) Af Amer 62, Est GFR (MDRD) Non-Af 51 L, BUN/Creatinine Ratio 31.4 H, Glucose 115 H, Calcium 8.7, Triglycerides 64, Cholesterol 109, LDL Cholesterol 41, VLDL Cholesterol 13, HDL Cholesterol 55 01/15/19 09:15: APTT 60.3 H Rhythm: EKG: ECHO: Stress Test: Cardiac Cath: PCI: CT Surgery: Holter monitor: EPS: PPM: CXR: Chest CT Scan: Assessment/Plan 1. Acute coronary syndrome: Patient appears to be having a subacute presentation of inferior myocardial infarction with probably RV involvement. His echocardiogram was reviewed. His EKG reveals sinus rhythm with PACs and Q waves in the inferior and lateral leads. Continue heparin and aspirin. I will load the patient with Plavix. At this time because of borderline blood pressure we are not able to start him on beta-blockers. His LFTs were elevated and so we can hold off on the statin. His elevated LFTs, lactic acidosis could both be related to his acute MS with RV failure. Lactic acidosis is getting better. Continue IV fluids to treat his right-sided dysfunction. His creatinine has also improved. At this time it appears that patient may be having a fair amount of dementia and conservative therapy may be reasonable in this patient. If it turns out that this was mainly delirium and if patient's mental status improves then we can consider coronary angiography probably on Thursday. 2. LV dysfunction: Patient has mild to moderate LV systolic dysfunction which is new compared to prior echo. This seems to be related to his subacute inferior MS. No ANTONIO or beta blockers at this time because of low blood pressure.
[2019-01-15] MEDS: Clopidogrel Bisulfate 300 MG Tablet PO (12:51)
--- NOTE | 2019-01-15 14:13 | CT_ITS ---
STUDY: CT BRAIN WITHOUT CONTRAST REASON FOR EXAM: Male, 83 years old. Worsening confusion RADIATION DOSAGE (If Supplied By Facility): CTDIvol = ( 44.99 ) mGy, DLP = ( 796.11 ) mGycm TECHNIQUE: Transaxial CT imaging of the brain was performed without administration of intravenous contrast material. Individualized dose optimization techniques were used for this CT. COMPARISON: No relevant priors. FINDINGS: Normal soft tissue structures. Normal calvarium. There is mild cerebral atrophy with widening of the extra-axial spaces and ventricular dilatation. There are areas of decreased attenuation within the white matter tracts of the supratentorial brain, consistent with microvascular disease changes. Normal basal ganglia and thalami. Normal brainstem. Normal cerebellum. There is no intracranial hemorrhage. There are no findings of an acute ischemic infarction. Normal visualized paranasal sinuses. CT/Brain/Head without Contrast IMPRESSION: 1. No acute intracranial hemorrhage or mass effect. 2. Central parenchymal volume loss. White matter changes that are nonspecific but most commonly associated with chronic small vessel ischemic disease. Electronically Signed: David Wheat MD at 14:49 EDT , Service support ,
--- NOTE | 2019-01-15 14:51 | CASEMGMT ---
RN CM Assessment Introduced role of RN CM to patient, Patient Shahrzad Leiva, and son Reji at bedside.? Patient is alert, Not oriented and unable?to participate in RN CM Assessment. ?Information obtained from patient and son at bedside. Care providers, pharmacy, and demographics verified. Physical Address: [address] [place], [place] [id number]. Shahrzad Leiva , Son Reji . Presentation: Generalized Weakness, Currently in Progress trying to get Knee replacement done in [place], Had EKG and told to f/u with Trimming Machine Set Up Operator about getting a stress test, then called and told Labs look like dehydration and recommended IVF. Admit Dx: NSTEMI Re-Admit: No Barriers/Issues: Lives with and states d/t current Physical Condition over the past year patient has been Home Bound and unable to take patient out in d/t no ramp, the times that patient has been out is when son Reji comes and takes patient- Reji lives in [place] and states has been visiting here approx four times in the past year. Otherwise Transportation is an Issue and Access out of the home is an issue. Both Son and Inquired about HHC. PCP: [facility] Specialists: Pod- Dr Blanca Eli, Derm- [facility], Ortho- [facility] & in [place]. Preferred Pharmacy: [facility] Insurance: [facility], [place] [facility] Benefit:?Yes LNOK: Shahrzad Leiva LW/HPOA: No, Would like information Living Arrangements:?Lives with in a SS home, 3 steps to enter ADL?s: Ambulates with walker and stand by assist in home from Bedroom to Kitchen, Requires assistance with all ADLs Transportation: does drive, however unable to transport patient. See above issue. DME: [facility], Walker, WC HHC: None, States does not have a preference and Okay with [facility] HHC SNF: None. If Recommended, would like to discuss Options. No Preference or thoughts about SNF at this time as goal is Home with HHC. Goal: Home with HHC. No further questions/concerns/issues with DC Planning at this time. Aware CM remains available for any emerging needs and provided main CM Contact number. DC PLAN: Home with HHC vs. SNF TBD. CM to follow with any emerging needs. Adrian Sow RNCM
[2019-01-15 15:54] LABS: Partial Thromboplast Time 59.8 Seconds (24.1-36.2)
--- NOTE | 2019-01-15 17:23 | NURSING ---
Placement of tate catheter at 1723 per MD verbal readback order. Pt has hx of retention and prostate issues. Pt bladder scanned for 523. Pt tolerated 16 slovenian placement well. Drained 500 immediately jennifer urine.
--- NOTE | 2019-01-15 17:31 | PCM.PN.BLA ---
Progress Note I had a discussion with the patient's and son face to face around noon today. I explained to them that the patient has heart attack with multiorgan failure including kidney failure, liver congestion and encephalopathy. I informed them that the plan for now will be medical treatment and cardiology may do heart cath. Because pt became more lethargicm CT brain done and showed no acute infarct or hemorrhage. Later around 4 pm, Nurse called me and said pt is more lethargic and now bradycardiac with heart rate down to 30s and pounced back to 50s. I discussed the case again with cardiology over the phone and we agreed the the pt is declining and his prognosis is poor. I spoke to the patient's and son over the phone around 5 pm. I informed them about the slowing heart rate and increasing lethargy may indicate the pt is declining and he is at high risk of cardiac arrest anytime. I relayed to them that I spoke with the heart doctor again and we think that the patient is declining and his prognosis is poor. I discussed the code status again with them. I explained different types of code status including DNR CC, DNR CCA an full code. I stated to them that if patient wwent in to cardiac arrest, his chances of survival and recovery is very low give his age and the acute medical problems he has. I gave 15-20 mins time to discuss between pt's and son. I called back and pt's son stated the they don't want any aggressive measures, no intubation and no mechanical ventilation. They are aware that they can still elect to go with full code but they confirmed DNR CCA. Order entered. Time spent on discussion both face to face and over the phone: 22 mins. Code Visit Procedures: 95874 Advncd Care Plan 30 Min
--- NOTE | 2019-01-15 18:03 | NURSING ---
Patient oxygen saturation is 96 on room air - refusing to keep on. Family requesting it be left off. Expressed protocol for chest pain.
[2019-01-16] VITALS (12 sets, daily range): BP systolic 93–108; BP diastolic 51–75; PULSE 29–66; RESP 16–20; TEMP 36.3–37.7; O2SAT 90–95
[2019-01-16] MEDS: HEPARIN/D5w 25,000 UNITS 25,000 UNITS/250 ML IV.SOLN. 10 UNITS IV (05:14)
[2019-01-16 05:23] LABS: Absolute Lymphocyte Count 0.53 X10^3/uL (0.83-4.51); Basophil# 0.01 X10^3/uL; Basophil% 0.1 % (0-1); Hematocrit 36.3 % (40-54); Hemoglobin 11.8 g/dL (13.0-16.5); Lymphocyte # 0.53 X10^3/ul (4.0); Mean Corp Hgb Conc 32.5 g/dL (32-36); Mean Corpuscular Hgb 31.2 pg (27.0-32.0); Mean Platelet Vol. 11.3 fl (6.2-12.0); Monocyte# 0.82 X10^3/uL; Monocyte% 6.1 % (0-10); NRBC Flagged by Analyzer 0 % (0-5); Neutrophil % 89.5 % (47-70); POSITIVE DIFFERENTIAL YES; Platelet Count 140 K/mm3 (150-450); RBC Distribution Width CV 14.4 % (11.6-14.6); RBC Distribution Width SD 50.9 fl (35.1-43.9); Red Blood Count 3.78 M/mm3 (4.6-6.2); White Blood Count 13.4 K/mm3 (4.4-11.0)
[2019-01-16 05:40] LABS: ALB/GLOB Ratio 1.1 RATIO (0.9-2.4); AST(SGOT) 140 U/L (15-37); Alanine Aminotransfer ALT/SGPT 92 U/L (16-61); Albumin, Serum 2.9 g/dL (3.2-5.0); Alkaline Phosphatase 102 U/L (45-117); Anion Gap 10 (5-15); BUN 58 mg/dL (7-18); BUN/Creat Ratio 39.5 RATIO (10-20); Calcium,Total 8.5 mg/dL (8.5-10.1); Chloride 113 mmol/L (98-107); Creatinine, Serum 1.47 mg/dL (0.70-1.30); EST Glomerular Filtration Rate 49 mL/min (>60); Est Glom Filt Rate - Afr Amer 59 mL/min (>60); Estimated Creatinine Clearance 36.14 ml/min; Globulin 2.7 g/dL (2.2-4.2); Glucose 110 mg/dL (74-106); Partial Thromboplast Time 50.9 Seconds (24.1-36.2); Potassium 4.3 mmol/L (3.5-5.1); Protein, Total 5.6 g/dL (6.4-8.2); Sodium Level 144 mmol/L (136-145)
[2019-01-16 05:55] LABS: Differential Indicated SCAN CRITERIA MET
[2019-01-16 06:09] LABS: Differential Comment SCANNED
[2019-01-16] MEDS: Heparin Injection (Vial) 5,000 UNIT/ML VIAL IV (06:28)
--- NOTE | 2019-01-16 08:17 | PN_ITS ---
Patient Problems: Active and Suspected Problems (Last Updated 01/14/19 @ 16:41 by Dieter Mcleod DO) Right ventricular failure (Acute) Lactic acidosis (Acute) Elevated LFTs (Acute) Acute kidney injury superimposed on CKD (Acute) NSTEMI (non-ST elevated myocardial infarction) (Acute) Subjective: Chief complaint follow-up after admission for acute non-ST elevation DC, probable acute right ventricular failure, encephalopathy, KELLIE on CKD, elevated LFT and lactic acidosis. Patient seen and examined. No acute events overnight. This morning, he is more alert, responding appropriately to questions. He recognizes his son and his . He denied chest pain or shortness of breath. Denied cough or sputum production. He has been afebrile, has been bradycardic, blood pressure is stable, pulse ox is 93% on room air. - Physical Exam General: Alert, Cooperative, No apparent distress, Disoriented HEENT: Atraumatic, PERRLA, EOMI, Normocephalic Oral: Moist Mucosa, No Gingival or Mucosal Lesions/ Ulcerations Neck: Supple, No JVD, Negative Carotid Bruits, Trachea Midline, Thyroid Normal Size and Texture Lungs: Clear to auscultation, Normal air movement, No rhonchi, No wheeze, No rales, Diminished Cardiovascular: Regular rate, Regular Rhythm, Normal S1, Normal S2, PMI Normal, Bradycardic Abdomen: Bowel Sounds Present, Soft, Non Tender, Non-Distended, No Hepato- splenomegaly Extremities: No clubbing, No cyanosis, No edema Skin: No rashes, No breakdown Lymphatic: No Cervical, Supraclavicular, or Inguinal Adenopathy Neurological: Cranial nerves II-XII grossly intact, Neuro grossly intact Psych/Mental Status: Normal Affect, Appropriate Vital Signs Temp Pulse Resp BP Pulse Ox 98.0 F 56 L 18 101/64 90 01/16/19 04:09 01/16/19 07:22 01/16/19 04:09 01/16/19 04:09 01/16/19 06:39 Oxygen Flow Rate (L/min) 1.5 Oxygen Delivery Method Room Air Weight: 147 lb 14.883 oz Body Mass Index (BMI) 21.8 Intake and Output for Last 24 Hours 01/14/19 01/15/19 01/16/19 23:59 23:59 23:59 Intake Total 240 / 1018 2074.7 / 2074.7 375.7 / 375.7 Output Total 700 / 700 125 / 125 Balance 240 / 1018 1374.7 / 1374.7 250.7 / 250.7 Microbiology Past 72 Hours 01/15/19 22:50 C. difficile DNA Amplification - Final Stool 01/15/19 22:50 Stool Occult Blood (CARLOS) - Final Stool Occult Blood Positive Laboratory Tests Past 24 Hrs 01/15/19 01/15/19 01/15/19 09:15 09:15 09:15 WBC 16.0 H RBC 3.76 L Hgb 11.8 L Hct 35.8 L MCV 95.2 H MCH 31.4 MCHC 33.0 RDW Std Deviation 50.2 H RDW Coeff of Nicolas 14.3 Plt Count 148 L MPV 11.1 Immature Gran % (Auto) 0.300 Neut % (Auto) 89.6 H Lymph % (Auto) 3.3 L [place] % (Auto) 6.7 Eos % (Auto) 0.0 Baso % (Auto) 0.1 Absolute Neuts (auto) 14.3 H Absolute Lymphs (auto) 0.53 L Absolute Nucleated RBC 0.00 Nucleated RBC % 0 Differential Comment SCANNED APTT Sodium 142 Potassium 4.5 Chloride 110 H Carbon Dioxide 21.0 Anion Gap 11 BUN 44 H Creatinine 1.40 H Estim Creat Clear Calc 37.94 Est GFR (MDRD) Af Amer 62 Est GFR (MDRD) Non-Af 51 L BUN/Creatinine Ratio 31.4 H Glucose 115 H Calcium 8.7 Total Bilirubin AST ALT Alkaline Phosphatase Total Protein Albumin Globulin Albumin/Globulin Ratio Triglycerides 64 Cholesterol 109 LDL Cholesterol 41 VLDL Cholesterol 13 HDL Cholesterol 55 Lipase Vitamin B12 Pending Vitamin D 25-Hydroxy Pending RBC Folate Hemolysate RBC Folate Hematocrit TSH 1.70 01/15/19 01/15/19 01/15/19 09:15 09:15 09:15 WBC RBC Hgb Hct MCV MCH MCHC RDW Std Deviation RDW Coeff of Nicolas Plt Count MPV Immature Gran % (Auto) Neut % (Auto) Lymph % (Auto) [place] % (Auto) Eos % (Auto) Baso % (Auto) Absolute Neuts (auto) Absolute Lymphs (auto) Absolute Nucleated RBC Nucleated RBC % Differential Comment APTT 60.3 H Sodium Potassium Chloride Carbon Dioxide Anion Gap BUN Creatinine Estim Creat Clear Calc Est GFR (MDRD) Af Amer Est GFR (MDRD) Non-Af BUN/Creatinine Ratio Glucose Calcium Total Bilirubin AST ALT Alkaline Phosphatase Total Protein Albumin Globulin Albumin/Globulin Ratio Triglycerides Cholesterol LDL Cholesterol VLDL Cholesterol HDL Cholesterol Lipase 33 L Vitamin B12 Vitamin D 25-Hydroxy RBC Folate Hemolysate Pending RBC Folate Pending Hematocrit Pending TSH 01/15/19 01/16/19 01/16/19 15:37 05:10 05:10 WBC 13.4 H RBC 3.78 L Hgb 11.8 L Hct 36.3 L MCV 96.0 H MCH 31.2 MCHC 32.5 RDW Std Deviation 50.9 H RDW Coeff of Nicolas 14.4 Plt Count 140 L MPV 11.3 Immature Gran % (Auto) 0.300 Neut % (Auto) 89.5 H Lymph % (Auto) 4.0 L [place] % (Auto) 6.1 Eos % (Auto) 0.0 Baso % (Auto) 0.1 Absolute Neuts (auto) 12.0 H Absolute Lymphs (auto) 0.53 L Absolute Nucleated RBC 0.00 Nucleated RBC % 0 Differential Comment SCANNED APTT 59.8 H Sodium 144 Potassium 4.3 Chloride 113 H Carbon Dioxide 21.0 Anion Gap 10 BUN 58 H Creatinine 1.47 H Estim Creat Clear Calc 36.14 Est GFR (MDRD) Af Amer 59 L Est GFR (MDRD) Non-Af 49 L BUN/Creatinine Ratio 39.5 H Glucose 110 H Calcium 8.5 Total Bilirubin 0.90 AST 140 H ALT 92 H Alkaline Phosphatase 102 Total Protein 5.6 L Albumin 2.9 L Globulin 2.7 Albumin/Globulin Ratio 1.1 Triglycerides Cholesterol LDL Cholesterol VLDL Cholesterol HDL Cholesterol Lipase Vitamin B12 Vitamin D 25-Hydroxy RBC Folate Hemolysate RBC Folate Hematocrit TSH 01/16/19 05:10 WBC RBC Hgb Hct MCV MCH MCHC RDW Std Deviation RDW Coeff of Nicolas Plt Count MPV Immature Gran % (Auto) Neut % (Auto) Lymph % (Auto) [place] % (Auto) Eos % (Auto) Baso % (Auto) Absolute Neuts (auto) Absolute Lymphs (auto) Absolute Nucleated RBC Nucleated RBC % Differential Comment APTT 50.9 H Sodium Potassium Chloride Carbon Dioxide Anion Gap BUN Creatinine Estim Creat Clear Calc Est GFR (MDRD) Af Amer Est GFR (MDRD) Non-Af BUN/Creatinine Ratio Glucose Calcium Total Bilirubin AST ALT Alkaline Phosphatase Total Protein Albumin Globulin Albumin/Globulin Ratio Triglycerides Cholesterol LDL Cholesterol VLDL Cholesterol HDL Cholesterol Lipase Vitamin B12 Vitamin D 25-Hydroxy RBC Folate Hemolysate RBC Folate Hematocrit TSH Medical Necessity - Tobacco Use Smoking Status: Former smoker Tobacco Use: Non-smoker Assessment/Plan All Active Problems (Last Updated 01/14/19 @ 16:41 by Dieter Mcleod DO) Right ventricular failure (Acute) Lactic acidosis (Acute) Elevated LFTs (Acute) Acute kidney injury superimposed on CKD (Acute) NSTEMI (non-ST elevated myocardial infarction) (Acute) This is an 83 years old male patient admitted because of weakness, found to have acute non-ST elevation DC, acute kidney injury on top of stage III chronic kidney disease, elevated LFT and acute right ventricular failure as well as worsening confusion/encephalopathy. #1 acute non-ST elevation DC/acute right ventricular failure: He is on aspirin, Plavix and IV heparin drip as well as IV fluids. 2D echocardiogram revealed ejection fraction of 40 to 45%, severe global right ventricular systolic funct ion, severely dilated right ventricle, hypokinesis of the inferior wall and inferoseptal wall. We cannot start beta-blockers or ANTONIO inhibitor because of bradycardia and worsening kidney function respectively. Stool tested positive for occult blood. Plan to continue same treatment, will discuss with cardiology about discontinuation of IV heparin drip. #2 encephalopathy/confusion: In context of history of suspected mild dementia, getting worse nowadays according to the patient's . He has no focal deficit. This is likely because of acute illness, DC and KELLIE. CT scan brain showed no acute findings. Today, patient is more alert and coherent but remains disoriented. Plan to monitor. #3 acute kidney injury on top of stage III chronic kidney disease: Baseline creatinine has been around 1.3 to 1.4 mg/dL. Admission creatinine is 1.84, today's creatinine is 1.47, remained almost same compared to yesterday. Plan to continue IV fluids, repeat CBC and BMP in the morning. #4 elevated LFT: Patient denied any right upper quadrant abdominal pain. No tenderness or Rico sign on physical examination. This is probably due to liver congestion secondary to acute right ventricular failure. Repeat LFT from today revealed that the liver transaminases are trending down, bilirubin is back to normal. #5 lactic acidosis?leukocytosis: Without source of infection. Lactic acid is 3.1, came down to 2.6 with IV fluids. This is probably due to tissue hypoperfusion secondary to RV failure. Chest x-ray showed no acute infiltrate or consolidation. UA was negative for acute cystitis. WBC is trending down. Stool for C. difficile was negative. Blood cultures pending. Again, no indication for IV antibiotics. #6 DVT prophylaxis: On IV heparin drip. #7 CODE STATUS: DNR CCA, discussed with the patient's and son yesterday. This note was generated with [employer] dictation software. It may contain incorrect words, spelling, and punctuation that were not noted in checking the note before signing. Code Visit Inpatient E&M: 03992 Subs Hosp L2
[2019-01-16] MEDS: Clopidogrel Bisulfate 75 MG Tablet PO (09:42)
[2019-01-16] MEDS: Aspirin E.C. 81 MG Tablet PO (09:42)
[2019-01-16] MEDS: Doxazosin 4 MG Tablet PO (09:42)
[2019-01-16] MEDS: 0.9% Normal Saline 1,000 ML 75 ML IV ×2 (12:08→23:17)
--- NOTE | 2019-01-16 15:40 | PN.CARD_ITS ---
Subjectve: Patient denies any chest pain, shortness of breath. He does have generalized weakness. His and son were at bedside. Patient appears to be at his baseline level of mentation and functional status. At home he does use a bedside commode and his helps him with that. He uses a walker but does not very physically active. Objective: Vital Signs Temp Pulse Resp BP Pulse Ox 97.3 F L 62 16 107/72 94 01/16/19 09:30 01/16/19 15:00 01/16/19 09:30 01/16/19 09:30 01/16/19 09:30 Oxygen Flow Rate (L/min) 1.5 Oxygen Delivery Method Room Air Weight: 147 lb 14.883 oz Body Mass Index (BMI) 21.8 Intake and Output for Last 24 Hours 01/14/19 01/15/19 01/16/19 23:59 23:59 23:59 Intake Total 240 / 1018 2074.7 / 2074.7 1123.7 / 1123.7 Output Total 700 / 700 225 / 225 Balance 240 / 1018 1374.7 / 1374.7 898.7 / 898.7 General: Awake HEENT: Atraumatic Oral: Moist Mucosa Neck: Supple Lungs: Clear to auscultation Cardiovascular: Normal S1, Normal S2 Abdomen: Soft Extremities: No edema Skin: No Rashes Psych/Mental Status: Appropriate 01/15/19 15:37: APTT 59.8 H 01/16/19 05:10: WBC 13.4 H, RBC 3.78 L, Hgb 11.8 L, Hct 36.3 L, MCV 96.0 H, MCH 31.2, MCHC 32.5, Plt Count 140 L, MPV 11.3, Immature Gran % (Auto) 0.300, Neut % (Auto) 89.5 H, Lymph % (Auto) 4.0 L, [place] % (Auto) 6.1, Eos % (Auto) 0.0, Baso % (Auto) 0.1, Absolute Neuts (auto) 12.0 H, Nucleated RBC % 0 01/16/19 05:10: Sodium 144, Potassium 4.3, Chloride 113 H, Carbon Dioxide 21.0, Anion Gap 10, BUN 58 H, Creatinine 1.47 H, Est GFR (MDRD) Af Amer 59 L, Est GFR (MDRD) Non-Af 49 L, BUN/Creatinine Ratio 39.5 H, Glucose 110 H, Calcium 8.5, Total Bilirubin 0.90 01/16/19 05:10: APTT 50.9 H Rhythm: EKG: ECHO: Stress Test: Cardiac Cath: PCI: CT Surgery: Holter monitor: EPS: PPM: CXR: Chest CT Scan: Medical Necessity - Tobacco Use Smoking Status: Former smoker Tobacco Use: Non-smoker Assessment/Plan 1. Acute coronary syndrome: Patient appears to be having a subacute presentation of inferior myocardial infarction with probably RV involvement. Hi s mentation has improved compared to yesterday and appears to be at his baseline. I discussed treatment options with the patient's family in detail. At this time it is reasonable to treat the patient conservatively without cardiac cath. He does have multiorgan dysfunction along with this RI. However he looks improved compared to yesterday. 2. Bradycardia: Patient has had episodes of bradycardia with episodes of type II second-degree AV block. He has remained asymptomatic from this. We will continue to monitor this on telemetry. 3. LV dysfunction: Patient has mild to moderate LV systolic dysfunction which is new compared to prior echo. This seems to be related to his subacute inferior RI. No ANTONIO or beta blockers at this time because of low blood pressure.
[2019-01-16] MEDS: Acetaminophen 325 MG Tablet 650 MG PO (20:38)
[2019-01-16 22:07] LABS: Folate, Hemolysate Test 305.2 ng/mL (Not Estab.); Folate, RBC (Hct) Test 32.7 % (37.5-51.0)
[2019-01-17] VITALS (12 sets, daily range): BP systolic 96–120; BP diastolic 65–90; PULSE 51–83; RESP 16–20; TEMP 36.5–37.3; O2SAT 90–95
--- NOTE | 2019-01-17 02:54 | EKG12_ITS ---
Test Reason : RHYTHMN CHANGE Blood Pressure : / mmHG Vent. Rate : 074 BPM Atrial Rate : 074 BPM P-R Int : 296 ms QRS Dur : 070 ms QT Int : 398 ms P-R-T Axes : 000 -54 017 degrees QTc Int : 441 ms Sinus rhythm with 1st degree A-V block with frequent Premature ventricular complexes Left axis deviation Low voltage QRS Inferior infarct , age undetermined Anterolateral infarct , age undetermined Abnormal ECG When compared with ECG of 14-JAN-2019 21:10, MANUAL COMPARISON REQUIRED, DATA IS UNCONFIRMED Confirmed by KEEGAN RODRÍGUEZ ([id number]), book or script editor JALEN LOERA ([id number]) on 01/21/2019 9:02:24 AM Referred By: Dieter Mcleod Confirmed By:KEEGAN RODRÍGUEZ
[2019-01-17 05:56] LABS: Absolute Lymphocyte Count 0.57 X10^3/uL (0.83-4.51); Absolute Neutrophil Count 9.7 X10^3/uL (2.0-7.7); Basophil# 0.01 X10^3/uL; Basophil% 0.1 % (0-1); Eosinophil# 0.01 X10^3/uL; Eosinophils% 0.1 % (0-5); Hematocrit 34.9 % (40-54); Hemoglobin 11.5 g/dL (13.0-16.5); Lymphocyte # 0.57 X10^3/ul (4.0); Lymphocyte % 5.1 % (19-41); Mean Corpuscular Hgb 31.7 pg (27.0-32.0); Mean Corpuscular Volume 96.1 fL (80-94); Mean Platelet Vol. 11.2 fl (6.2-12.0); Monocyte# 0.79 X10^3/uL; Monocyte% 7.1 % (0-10); NRBC Flagged by Analyzer 0 % (0-5); Neutrophil # 9.72 X10^3/uL (2.7-7.7); Neutrophil % 87.1 % (47-70); POSITIVE DIFFERENTIAL YES; Platelet Count 137 K/mm3 (150-450); RBC Distribution Width CV 14.5 % (11.6-14.6); Red Blood Count 3.63 M/mm3 (4.6-6.2); White Blood Count 11.2 K/mm3 (4.4-11.0)
[2019-01-17 06:03] LABS: Differential Indicated SCAN CRITERIA MET
[2019-01-17 06:12] LABS: Anion Gap 10 (5-15); BUN 61 mg/dL (7-18); BUN/Creat Ratio 42.7 RATIO (10-20); Calcium,Total 8.4 mg/dL (8.5-10.1); Chloride 115 mmol/L (98-107); Creatinine, Serum 1.43 mg/dL (0.70-1.30); EST Glomerular Filtration Rate 50 mL/min (>60); Est Glom Filt Rate - Afr Amer 61 mL/min (>60); Estimated Creatinine Clearance 37.15 ml/min; Glucose 113 mg/dL (74-106); Potassium 4.2 mmol/L (3.5-5.1); Sodium Level 145 mmol/L (136-145)
[2019-01-17 06:31] LABS: International Normalized Ratio 1.3; Prothrombin Time (Protime)PT. 15.7 SECONDS (11.7-14.9)
[2019-01-17 06:36] LABS: Differential Comment SCANNED
--- NOTE | 2019-01-17 08:24 | PCM.PROGNOTE ---
Patient Problems: Active and Suspected Problems (Last Updated 01/14/19 @ 16:41 by Dieter Mcleod DO) Right ventricular failure (Acute) Lactic acidosis (Acute) Elevated LFTs (Acute) Acute kidney injury superimposed on CKD (Acute) NSTEMI (non-ST elevated myocardial infarction) (Acute) Subjective: Chief complaint follow-up after admission for acute non-ST elevation [place], probable acute right ventricular failure, encephalopathy, KELLIE on CKD, elevated LFT and lactic acidosis. Patient seen and examined. No acute events overnight. Patient denies any chest pain or shortness of breath. No family was at the bedside. He remained intermittently confused and disoriented. His vital signs are stable. - Physical Exam General: Alert, Cooperative, No apparent distress, Confused, Disoriented HEENT: Atraumatic, PERRLA, EOMI, Normocephalic Oral: Moist Mucosa, No Gingival or Mucosal Lesions/ Ulcerations Neck: Supple, No JVD, Negative Carotid Bruits, Trachea Midline, Thyroid Normal Size and Texture Lungs: Clear to auscultation, No rhonchi, No wheeze, No rales, Diminished Cardiovascular: Regular rate, Regular Rhythm, Normal S1, Normal S2, PMI Normal Abdomen: Bowel Sounds Present, Soft, Non Tender, Non-Distended, No Hepato-splenomegaly Extremities: No clubbing, No cyanosis, No edema Skin: No rashes, No breakdown Lymphatic: No Cervical, Supraclavicular, or Inguinal Adenopathy Neurological: Cranial nerves II-XII grossly intact, Neuro grossly intact Psych/Mental Status: Normal Affect, Appropriate Vital Signs Temp Pulse Resp BP Pulse Ox 97.7 F L 62 18 109/67 90 01/17/19 05:30 01/17/19 07:06 01/17/19 05:30 01/17/19 05:30 01/17/19 07:07 Oxygen Flow Rate (L/min) 1.5 Oxygen Delivery Method Room Air Weight: 147 lb 14.883 oz Body Mass Index (BMI) 21.8 Intake and Output for Last 24 Hours 01/15/19 01/16/19 01/17/19 23:59 23:59 23:59 Intake Total 2074.7 / 2074.7 2160.7 / 2160.7 568 / 568 Output Total 700 / 700 500 / 500 200 / 200 Balance 1374.7 / 1374.7 1660.7 / 1660.7 368 / 368 Microbiology Past 72 Hours 01/14/19 13:47 Blood Culture - Preliminary Blood Culture (Wb) #2 - Anticubital Right No growth in 48 hours. 01/14/19 12:55 Blood Culture - Preliminary Blood Culture (Wb) - Left Forearm No growth in 48 hours. 01/15/19 22:50 C. difficile DNA Amplification - Final Stool 01/15/19 22:50 Stool Occult Blood (CARLOS) - Final Stool Occult Blood Positive Laboratory Tests Past 24 Hrs 01/17/19 01/17/19 01/17/19 05:30 05:30 05:30 WBC 11.2 H RBC 3.63 L Hgb 11.5 L Hct 34.9 L MCV 96.1 H MCH 31.7 MCHC 33.0 RDW Std Deviation 51.0 H RDW Coeff of Nicolas 14.5 Plt Count 137 L MPV 11.2 Immature Gran % (Auto) 0.500 Neut % (Auto) 87.1 H Lymph % (Auto) 5.1 L [place] % (Auto) 7.1 Eos % (Auto) 0.1 Baso % (Auto) 0.1 Absolute Neuts (auto) 9.7 H Absolute Lymphs (auto) 0.57 L Absolute Nucleated RBC 0.00 Nucleated RBC % 0 Differential Comment SCANNED PT 15.7 H INR 1.3 Sodium 145 Potassium 4.2 Chloride 115 H Carbon Dioxide 20.0 L Anion Gap 10 BUN 61 H Creatinine 1.43 H Estim Creat Clear Calc 37.15 Est GFR (MDRD) Af Amer 61 Est GFR (MDRD) Non-Af 50 L BUN/Creatinine Ratio 42.7 H Glucose 113 H Calcium 8.4 L Medical Necessity - Tobacco Use Smoking Status: Former smoker Tobacco Use: Non-smoker Assessment/Plan All Active Problems (Last Updated 01/14/19 @ 16:41 by Dieter Mcleod DO) Right ventricular failure (Acute) Lactic acidosis (Acute) Elevated LFTs (Acute) Acute kidney injury superimposed on CKD (Acute) NSTEMI (non-ST elevated myocardial infarction) (Acute) This is an 83 years old male patient admitted because of weakness, found to have acute non-ST elevation [place], acute kidney injury on top of stage III chronic kidney disease, elevated LFT and acute right ventricular failure as well as worsening confusion/encephalopathy. #1 acute non-ST elevation IN/acute right ventricular failure: He is on aspirin, Plavix. IV heparin drip discontinued. Remains chest pain-free. Vital signs are stable. He is not on ANTONIO inhibitors or beta-blockers because of intermittent bradycardia and also because of acute kidney injury. 2D echocardiogram revealed ejection fraction of 40 to 45%, severe global right ventricular systolic function, severely dilated right ventricle, hypokinesis of the inferior wall and inferoseptal wall. Cardiology on the case. Plan to continue same treatment with medications at this time. #2 encephalopathy/confusion: His mental status improved, more alert and coherent but remained intimately confused and disoriented. He had history of suspected mild dementia, getting worse nowadays according to the patient's . He has no focal deficit. CT scan brain showed no acute findings. #3 acute kidney injury on top of stage III chronic kidney disease: Baseline creatinine has been around 1.3 to 1.4 mg/dL. Admission creatinine is 1.84, today's creatinine is 1.43, back to his baseline. Remains on IV fluids. #4 elevated LFT: Attributed to liver congestion secondary to right ventricular failure. Liver transaminases are trending down, bilirubin is back to normal. Patient denied any right upper quadrant abdominal pain. #5 lactic acidosis?leukocytosis: Without source of infection. Lactic acid is 3.1, came down to 2.6 with IV fluids. This is probably due to tissue hypoperfusion secondary to RV failure. Chest x-ray showed no acute infiltrate or consolidation. UA was negative for acute cystitis. WBC continued to drop. Stool for C. difficile was negative. Blood cultures showed no growth in 48 hours. #6 DVT prophylaxis: SCDs. #7 CODE STATUS: DNR CCA, discussed with the patient's and son. This note was generated with [employer] dictation software. It may contain incorrect words, spelling, and punctuation that were not noted in checking the note before signing. Code Visit Inpatient E&M: 70516 Subs Hosp L2
[2019-01-17] MEDS: Clopidogrel Bisulfate 75 MG Tablet PO (08:49)
[2019-01-17] MEDS: Doxazosin 4 MG Tablet PO (08:49)
[2019-01-17] MEDS: Aspirin E.C. 81 MG Tablet PO (08:50)
[2019-01-17] MEDS: 0.9% Normal Saline 1,000 ML 75 ML IV (12:05)
--- NOTE | 2019-01-17 13:00 | CASEMGMT ---
Addendum entered by Jacklyn Connolly 01/17/19 15:18: List of SNF's was provided to per request. Marcelina FAUSTIN CM Original Note: Per Deena FAUSTIN, pt is confused and unable to answer questions appropriately at this time. This RN CM to room to speak with /son regarding discharge plan at this time. Per therapy notes, pt was a max assist of 2 to EOB and was unable to even sidestep with max assist of 2. This RN CM discussed discharge plan with /son at this time and made them aware of therapy notes, voice understanding. /son request list of local SNF's but states she would probably prefer [facility] as her [id number] is already there and she has been to visit often. states she was struggling with pt prior to admission and is concerned about taking him home at this time but states pt is adamant about going home but is only A/O to person at this time. /son would like to speak with bun panner before making any further decisions at this time. This RN CM will check in with /son when they arrive tomorrow am. Per Deena FAUSTIN, Dr. Hobson is planning to come speak with family this afternoon. Marcelina FAUSTIN CM
[2019-01-18] VITALS (16 sets, daily range): BP systolic 80–110; BP diastolic 47–71; PULSE 41–75; RESP 14–18; TEMP 36.3–37.2; O2SAT 93–96
[2019-01-18] MEDS: 0.9% Normal Saline 1,000 ML 75 ML IV ×2 (00:32→12:00)
[2019-01-18 05:17] LABS: International Normalized Ratio 1.3; Prothrombin Time (Protime)PT. 16.4 SECONDS (11.7-14.9)
[2019-01-18 05:18] LABS: Absolute Lymphocyte Count 0.61 X10^3/uL (0.83-4.51); Absolute Neutrophil Count 9.7 X10^3/uL (2.0-7.7); Basophil# 0.01 X10^3/uL; Basophil% 0.1 % (0-1); Eosinophil# 0.01 X10^3/uL; Eosinophils% 0.1 % (0-5); Hematocrit 33.4 % (40-54); Hemoglobin 10.8 g/dL (13.0-16.5); Lymphocyte # 0.61 X10^3/ul (4.0); Lymphocyte % 5.5 % (19-41); Mean Corp Hgb Conc 32.3 g/dL (32-36); Mean Platelet Vol. 11.7 fl (6.2-12.0); Monocyte# 0.79 X10^3/uL; Monocyte% 7.1 % (0-10); NRBC Flagged by Analyzer 0 % (0-5); Neutrophil # 9.67 X10^3/uL (2.7-7.7); Neutrophil % 86.8 % (47-70); Platelet Count 117 K/mm3 (150-450); RBC Distribution Width CV 14.6 % (11.6-14.6); RBC Distribution Width SD 51.2 fl (35.1-43.9); Red Blood Count 3.48 M/mm3 (4.6-6.2); White Blood Count 11.1 K/mm3 (4.4-11.0)
[2019-01-18] MEDS: Clopidogrel Bisulfate 75 MG Tablet PO (05:29)
[2019-01-18] MEDS: Aspirin E.C. 81 MG Tablet PO (05:29)
[2019-01-18] MEDS: Doxazosin 4 MG Tablet PO (05:30)
[2019-01-18 05:45] LABS: Anion Gap 11 (5-15); BUN 61 mg/dL (7-18); BUN/Creat Ratio 47.3 RATIO (10-20); Calcium,Total 8.3 mg/dL (8.5-10.1); Chloride 115 mmol/L (98-107); Creatinine, Serum 1.29 mg/dL (0.70-1.30); EST Glomerular Filtration Rate 56 mL/min (>60); Est Glom Filt Rate - Afr Amer 68 mL/min (>60); Estimated Creatinine Clearance 41.18 ml/min; Glucose 122 mg/dL (74-106); Sodium Level 144 mmol/L (136-145)
--- NOTE | 2019-01-18 05:55 | EKG12_ITS ---
Test Reason : AM EKG Blood Pressure : / mmHG Vent. Rate : 072 BPM Atrial Rate : 072 BPM P-R Int : 256 ms QRS Dur : 076 ms QT Int : 400 ms P-R-T Axes : 012 -53 046 degrees QTc Int : 438 ms Sinus rhythm with 1st degree A-V block Left axis deviation Low voltage QRS Inferior infarct , age undetermined Abnormal ECG When compared with ECG of 17-JAN-2019 03:10, MANUAL COMPARISON REQUIRED, DATA IS UNCONFIRMED Confirmed by KEEGAN RODRÍGUEZ ([id number]), health editor JALEN LOERA ([id number]) on 01/21/2019 9:04:54 AM Referred By: Dieter Mcleod Confirmed By:KEEGAN RODRÍGUEZ
[2019-01-18 06:29] LABS: Magnesium 2.4 mg/dL (1.6-2.6)
--- NOTE | 2019-01-18 08:07 | PN_ITS ---
Patient Problems: Active and Suspected Problems (Last Updated 01/14/19 @ 16:41 by Dieter Mcleod DO) NSTEMI (non-ST elevated myocardial infarction) (Acute) Subjective: Chief complaint follow-up after admission for acute non-ST elevation AR, acute right ventricular failure, encephalopathy, KELLIE on CKD, elevated LFT and lactic acidosis. Patient seen and examined. No acute events overnight. He denies any chest pain or shortness of breath. Still intermittently confused and disoriented. Patient's was at the bedside. He is still having intermittent bradycardia, heart rate goes down to 40s, other vital signs are stable. - Physical Exam General: Alert, Cooperative, No apparent distress, Disoriented HEENT: Atraumatic, PERRLA, EOMI, Normocephalic Oral: Moist Mucosa, No Gingival or Mucosal Lesions/ Ulcerations Neck: Supple, No JVD, Negative Carotid Bruits, Trachea Midline, Thyroid Normal Size and Texture Lungs: Clear to auscultation, Normal air movement, No rhonchi, No wheeze, No rales Cardiovascular: Regular rate, Regular Rhythm, Normal S1, Normal S2, PMI Normal Abdomen: Bowel Sounds Present, Soft, Non Tender, Non-Distended, No Hepato- splenomegaly Extremities: No clubbing, No cyanosis, No edema Skin: No rashes, No breakdown Lymphatic: No Cervical, Supraclavicular, or Inguinal Adenopathy Neurological: Cranial nerves II-XII grossly intact, Neuro grossly intact Psych/Mental Status: Normal Affect, Appropriate Vital Signs Temp Pulse Resp BP Pulse Ox 98.9 F 62 18 110/71 95 01/18/19 05:27 01/18/19 07:55 01/18/19 05:27 01/18/19 05:27 01/18/19 07:06 Oxygen Flow Rate (L/min) 1.5 Oxygen Delivery Method Room Air Weight: 147 lb 14.883 oz Body Mass Index (BMI) 21.8 Intake and Output for Last 24 Hours 01/16/19 01/17/19 01/18/19 23:59 23:59 23:59 Intake Total 2160.7 / 2160.7 2192 / 2192 451 / 451 Output Total 500 / 500 575 / 575 200 / 200 Balance 1660.7 / 1660.7 1617 / 1617 251 / 251 Microbiology Past 72 Hours 01/14/19 13:47 Blood Culture - Preliminary Blood Culture (Wb) #2 - Anticubital Right No growth in 48 hours. 01/14/19 12:55 Blood Culture - Preliminary Blood Culture (Wb) - Left Forearm No growth in 48 hours. 01/15/19 22:50 C. difficile DNA Amplification - Final Stool 01/15/19 22:50 Stool Occult Blood (CARLOS) - Final Stool Occult Blood Positive Laboratory Tests Past 24 Hrs 01/18/19 01/18/19 01/18/19 04:38 04:38 04:38 WBC 11.1 H RBC 3.48 L Hgb 10.8 L Hct 33.4 L MCV 96.0 H MCH 31.0 MCHC 32.3 RDW Std Deviation 51.2 H RDW Coeff of Nicolas 14.6 Plt Count 117 L MPV 11.7 Immature Gran % (Auto) 0.400 Neut % (Auto) 86.8 H Lymph % (Auto) 5.5 L [place] % (Auto) 7.1 Eos % (Auto) 0.1 Baso % (Auto) 0.1 Absolute Neuts (auto) 9.7 H Absolute Lymphs (auto) 0.61 L Nucleated RBC % 0 PT 16.4 H INR 1.3 Sodium 144 Potassium 4.0 Chloride 115 H Carbon Dioxide 18.0 L Anion Gap 11 BUN 61 H Creatinine 1.29 Estim Creat Clear Calc 41.18 Est GFR (MDRD) Af Amer 68 Est GFR (MDRD) Non-Af 56 L BUN/Creatinine Ratio 47.3 H Glucose 122 H Calcium 8.3 L Magnesium 01/18/19 04:38 WBC RBC Hgb Hct MCV MCH MCHC RDW Std Deviation RDW Coeff of Nicolas Plt Count MPV Immature Gran % (Auto) Neut % (Auto) Lymph % (Auto) [place] % (Auto) Eos % (Auto) Baso % (Auto) Absolute Neuts (auto) Absolute Lymphs (auto) Nucleated RBC % PT INR Sodium Potassium Chloride Carbon Dioxide Anion Gap BUN Creatinine Estim Creat Clear Calc Est GFR (MDRD) Af Amer Est GFR (MDRD) Non-Af BUN/Creatinine Ratio Glucose Calcium Magnesium 2.4 Medical Necessity - Tobacco Use Smoking Status: Former smoker Tobacco Use: Non-smoker Assessment/Plan All Active Problems (Last Updated 01/14/19 @ 16:41 by Dieter Mcleod DO) Right ventricular failure (Acute) Lactic acidosis (Acute) Elevated LFTs (Acute) Acute kidney injury superimposed on CKD (Acute) NSTEMI (non-ST elevated myocardial infarction) (Acute) This is an 83 years old male patient admitted because of weakness, found to have acute non-ST elevation AR, acute kidney injury on top of stage III chronic kidney disease, elevated LFT and acute right ventricular failure as well as worsening confusion/encephalopathy. #1 acute non-ST elevation AR/acute right ventricular failure: Remains on aspirin, Plavix. Still having intermittent bradycardia, other vital signs are stable. He is not on ANTONIO inhibitors or beta-blockers because of intermittent bradycardia and also because of acute kidney injury. 2D echocardiogram revealed ejection fraction of 40 to 45%, severe global right ventricular systolic f unction, severely dilated right ventricle, hypokinesis of the inferior wall and inferoseptal wall. Cardiology on the case. Plan for cardiac catheterization today. #2 encephalopathy/confusion: His mental status improved, more alert and coherent but remained intimately confused and disoriented. He had history of suspected mild dementia, getting worse nowadays according to the patient's . He has no focal deficit. CT scan brain showed no acute findings. #3 acute kidney injury on top of stage III chronic kidney disease: Baseline creatinine has been around 1.3 to 1.4 mg/dL. Admission creatinine is 1.84, today's creatinine is 1.29, improving. #4 elevated LFT: Attributed to liver congestion secondary to right ventricular failure. Liver transaminases are trending down, bilirubin is back to normal. Patient denied any right upper quadrant abdominal pain. #5 lactic acidosis?leukocytosis: Without source of infection. Lactic acid is 3.1, came down to 2.6 with IV fluids. He remains afebrile, white blood count is trending down. This is probably due to tissue hypoperfusion secondary to RV failure. Chest x-ray showed no acute infiltrate or consolidation. UA was negative for acute cystitis. Stool for C. difficile was negative. Blood cultures showed no growth in 48 hours. #6 DVT prophylaxis: SCDs. #7 CODE STATUS: DNR CCA, discussed with the patient's and son. This note was generated with [employer] software. It may contain incorrect words, spelling, and punctuation that were not noted in checking the note before signing. Code Visit Inpatient E&M: 67044 Subs Hosp L2
--- NOTE | 2019-01-18 09:06 | PN.CARD_ITS ---
Subjectve: This note is based on evaluation of the patient and discussion with the patient and family on 01/17/2019. Due to EMR not being available immediately after patient evaluation due to a glitch in the system this note is being dictated on 01/18/2019. Patient is doing reasonably well without any complaints of chest pain or shortness of breath. Telemetry reveals episodes of bradycardia with type II second-degree AV block. Objective: Vital Signs Temp Pulse Resp BP Pulse Ox 97.5 F L 71 14 94/64 94 01/18/19 08:27 01/18/19 08:27 01/18/19 08:27 01/18/19 08:27 01/18/19 08:27 Oxygen Flow Rate (L/min) 1.5 Oxygen Delivery Method Room Air Weight: 147 lb 14.883 oz Body Mass Index (BMI) 21.8 Intake and Output for Last 24 Hours 01/16/19 01/17/19 01/18/19 23:59 23:59 23:59 Intake Total 2160.7 / 2160.7 2192 / 2192 451 / 451 Output Total 500 / 500 575 / 575 200 / 200 Balance 1660.7 / 1660.7 1617 / 1617 251 / 251 General: Awake HEENT: Atraumatic Oral: Moist Mucosa Neck: Supple Lungs: Clear to auscultation Cardiovascular: Regular Rhythm, Normal S1, Normal S2 Abdomen: Soft Extremities: No edema Psych/Mental Status: Appropriate 01/18/19 04:38: WBC 11.1 H, RBC 3.48 L, Hgb 10.8 L, Hct 33.4 L, MCV 96.0 H, MCH 31.0, MCHC 32.3, Plt Count 117 L, MPV 11.7, Immature Gran % (Auto) 0.400, Neut % (Auto) 86.8 H, Lymph % (Auto) 5.5 L, [place] % (Auto) 7.1, Eos % (Auto) 0.1, Baso % (Auto) 0.1, Absolute Neuts (auto) 9.7 H, Nucleated RBC % 0 01/18/19 04:38: PT 16.4 H, INR 1.3 01/18/19 04:38: Sodium 144, Potassium 4.0, Chloride 115 H, Carbon Dioxide 18.0 L , Anion Gap 11, BUN 61 H, Creatinine 1.29, Est GFR (MDRD) Af Amer 68, Est GFR (MDRD) Non-Af 56 L, BUN/Creatinine Ratio 47.3 H, Glucose 122 H, Calcium 8.3 L 01/18/19 04:38: Magnesium 2.4 Rhythm: EKG: ECHO: Stress Test: Cardiac Cath: PCI: CT Surgery: Holter monitor: EPS: PPM: CXR: Chest CT Scan: Medical Necessity - Tobacco Use Smoking Status: Former smoker Tobacco Use: Non-smoker Assessment/Plan 1. Acute coronary syndrome: Patient appears to be having a subacute presentation of inferior myocardial infarction with probably RV involvement. His mentation has improved and appears to be at baseline. I discussed treatment options with the patient's family in detail. Cardiac cath versus conservative medical management for non-STEMI was discussed in detail. Because of ongoing episodes of bradycardia with type II second-degree AV block it may be reasonable to proceed with coronary angiography. Alternatively, as patient is asymptomatic from this conservative medical management is also a reasonable approach. After discussing with the patient and family, patient's and son were leaning towards coronary angiography and the patient wanted to think about it. If patient is agreeable on 01/18/2019 then we will proceed with coronary angiography. 2. Bradycardia: Patient has had episodes of bradycardia with episodes of type II second-degree AV block. He has remained asymptomatic from this. We will continue to monitor this on telemetry. 3. LV dysfunction: Patient has mild to moderate LV systolic dysfunction which is new compared to prior echo. This seems to be related to his subacute inferior SD. No ANTONIO or beta blockers at this time because of low blood pressure.
--- NOTE | 2019-01-18 10:05 | CL.D_ITS ---
Patient Name: BENJAMÍN MALLORY Study Date: 01/18/2019 Performing: Ubaldo Hobson MD Ht: 69 inches 175 cm : 1935 Wt: 147.9 lbs 67 kg Age: 83 Gender: male BSA: 1.81 PROCEDURE(S) PERFORMED [id number]-[facility]/COR CLINICAL PROFILE AND INDICATIONS Indications: ACS > 24 hrs Heart Failure: NYHA Class: 1, Newly Diagnosed: Yes, Heart Failure Type: Systolic and RHF Stress/Imaging Stress/Image Study Performed: No CAD Presentations: Non-STEMI. Symptom onset Date/Time: Time Not Available CONCLUSIONS Single vessel CAD as described, No significant , Elevated LVEDP RECOMMENDATIONS Medical therapy DESCRIPTION OF PROCEDURE The patient arrived to the procedure lab. The risks and benefits of the procedure as well as a full d escription of our services here and current unavailability of surgical backup were fully explained to the patient and/or their significant other prior to the catheterization. The Timeout was completed, verifying the correct patient and procedure. The patient's procedural site was prepped and draped in the usual fashion. Local anesthetic was given subcutaneously to right radial region with Lidocaine 2% . Using a modified Seldinger technique, arterial access was obtained via the right radial artery, a 6 Fr sheath was inserted. Left Coronary Artery selective angiography was performed in multiple views u sing a 5 Fr. JL3.5 catheter. LV to AO pullback pressures were then recorded. Right Coronary Artery se lective angiography was then performed in multiple views using a 5 Fr. JR4 catheter.The arterial rodríguez th was pulled and a TR Band was applied for hemostasis CORONARY ANGIOGRAPHY DOMINANCE: Right Dominant LEFT HEART ASSESSMENT Left Ventricular Ejection Fraction: Not assessed Elevated Left Ventricular End Diastolic Pressure LEFT MAIN: 40 % Stenosis LEFT ANTERIOR DESCENDING ARTERY: Mild diffuse disease CIRCUMFLEX ARTERY: mild diffuse disease RIGHT CORONARY ARTERY: PROX RCA: 100 % Stenosis Faint L to R collaterals seen VALVE FINDINGS: No Aortic Valve Stenosis COMPLICATIONS No Complications PROCEDURE MEDICATIONS Oxygen: 2 L/min via nasal cannula Heparin given IA 01/18/2019 09:18:34 Verapamil 1.25mg, Ntg 100mcgs, 3000 units of Heparin given IA 01/18/2019 09:18:34 SUMMARY OF HEMODYNAMIC DATA Time AIR REST ECG 09:00:46 AO 77/54 (65) SA 09:20:36 LV 102/7, 15 09:25:01 LV 107/8, 20 09:25:21 LVp 100/5, 19 09:25:41 AOp 94/57 (74) 09:25:46 AO 92/65 (78) 09:25:59 Signed By Ubaldo Hobson MD On 01/18/2019 10:04:58 AM Ubaldo Hobson MD
[2019-01-18 10:16] LABS: Vitamin B12 355 pg/mL (211-911); Vitamin D,25 Hydroxy 36.8 ng/mL (29.95-100.01)
--- NOTE | 2019-01-18 13:20 | CASEMGMT ---
This RN CM to room to continue discussion with family regarding discharge plan at this time. Pt is sleeping at this time and per family is still confused. /son would like to speak in the hallway regarding pt plan at this time. expresses to this RN CM that she does not believe that they can take pt home at discharge but would like CM to not use the words 'skilled nursing or [facility]', if able as they state that pt 'just wants to go home.' Per Omi NOVAK, there is possibly a bed in TCU and this RN CM informed /son at this time and they actually feel like that may be a better option as pt is adamant to go home and also that his mother at [facility]. Omi NOVAK joined conversation at this time to explain MCR benefits more in-depth and /son state they would like to try for TCU at this time. Omi NOVAK made referral to TCU and per Soraya in TCU, there is a bed available starting tomorrow and bed is saved for pt at this time. /son updated at this time, voices understanding. SStaten RN JENNIFFER
[2019-01-18 14:29] LABS: Folates, RBC Test 933 ng/mL (>498)
--- NOTE | 2019-01-18 14:47 | CASEMGMT ---
Per RN CM patient's family would like patient to go to TCU. SW spoke with Soraya and there would be a bed for patient as long as he is sitter and Halodol free. Patricia RANDALL MSW
--- NOTE | 2019-01-18 16:34 | PCM.PN.CARD ---
Subjectve: Patient is asymptomatic from a cardiac standpoint. He has been having runs of nonsustained V. tach on telemetry. Objective: Vital Signs Temp Pulse Resp BP Pulse Ox 98.1 F 67 18 89/60 L 96 01/18/19 12:45 01/18/19 15:24 01/18/19 12:45 01/18/19 12:45 01/18/19 12:45 Oxygen Flow Rate (L/min) 1.5 Oxygen Delivery Method Room Air Weight: 147 lb 14.883 oz Body Mass Index (BMI) 21.8 Intake and Output for Last 24 Hours 01/16/19 01/17/19 01/18/19 23:59 23:59 23:59 Intake Total 2160.7 / 2160.7 2192 / 2192 922 / 922 Output Total 500 / 500 575 / 575 350 / 350 Balance 1660.7 / 1660.7 1617 / 1617 572 / 572 HEENT: Atraumatic Oral: Moist Mucosa Neck: Supple Lungs: Clear to auscultation Cardiovascular: Normal S1, Normal S2 Abdomen: Soft Skin: No Rashes Psych/Mental Status: Appropriate 01/18/19 04:38: WBC 11.1 H, RBC 3.48 L, Hgb 10.8 L, Hct 33.4 L, MCV 96.0 H, MCH 31.0, MCHC 32.3, Plt Count 117 L, MPV 11.7, Immature Gran % (Auto) 0.400, Neut % (Auto) 86.8 H, Lymph % (Auto) 5.5 L, [place] % (Auto) 7.1, Eos % (Auto) 0.1, Baso % (Auto) 0.1, Absolute Neuts (auto) 9.7 H, Nucleated RBC % 0 01/18/19 04:38: PT 16.4 H, INR 1.3 01/18/19 04:38: Sodium 144, Potassium 4.0, Chloride 115 H, Carbon Dioxide 18.0 L, Anion Gap 11, BUN 61 H, Creatinine 1.29, Est GFR (MDRD) Af Amer 68, Est GFR (MDRD) Non-Af 56 L, BUN/Creatinine Ratio 47.3 H, Glucose 122 H, Calcium 8.3 L 01/18/19 04:38: Magnesium 2.4 Rhythm: EKG: ECHO: Stress Test: Cardiac Cath: PCI: CT Surgery: Holter monitor: EPS: PPM: CXR: Chest CT Scan: Medical Necessity - Tobacco Use Smoking Status: Former smoker Tobacco Use: Non-smoker Assessment/Plan 1. Acute coronary syndrome: Patient appears to be having a subacute presentation of inferior myocardial infarction with probably RV involvement. His mentation has improved and appears to be at baseline. Coronary angiography revealed 100% occlusion of the RCA. We will treat this medically at this time. 2. Bradycardia: No significant episodes since last night. Will continue telemetry monitoring. 3. LV dysfunction: Patient has mild to moderate LV systolic dysfunction which is new compared to prior echo. This seems to be related to his subacute inferior TN. No ANTONIO or beta blockers at this time because of low blood pressure. 4. Nonsustained V. tach: Patient cannot be on a beta-dm yet due to low blood pressure. We will continue to monitor. Potassium was 4. Will check magnesium level.
[2019-01-18 17:44] LABS: Magnesium 2.3 mg/dL (1.6-2.6)
[2019-01-19 03:00] VITALS: PULSE 64
[2019-01-19 03:20] VITALS: BP 118/83; PULSE 78; RESP 18; TEMP 36.7; O2SAT 95
[2019-01-19 06:57] VITALS: PULSE 72
[2019-01-19 07:08] VITALS: O2SAT 93
[2019-01-19] MEDS: Clopidogrel Bisulfate 75 MG Tablet PO (08:36)
[2019-01-19] MEDS: Doxazosin 4 MG Tablet PO (08:36)
[2019-01-19] MEDS: Aspirin E.C. 81 MG Tablet PO (08:36)
--- NOTE | 2019-01-19 08:47 | PCM.PROGNOTE ---
Patient Problems: Active and Suspected Problems (Last Updated 01/14/19 @ 16:41 by Dieter Mcleod DO) NSTEMI (non-ST elevated myocardial infarction) (Acute) Subjective: Chief complaint follow-up after admission for acute non-ST elevation SC, acute right ventricular failure, encephalopathy, KELLIE on CKD, elevated LFT and lactic acidosis. Patient seen and examined. No acute events overnight. Today, denies any chest pain or shortness of breath. He remains intermittently confused and disoriented. But he mentioned that he is not able to stand because he has been on the bed for a few days. His vital signs are stable. - Physical Exam General: Alert, Cooperative, No apparent distress, Confused, Disoriented HEENT: Atraumatic, PERRLA, EOMI, Normocephalic Oral: Moist Mucosa, No Gingival or Mucosal Lesions/ Ulcerations Neck: Supple, No JVD, Trachea Midline, Thyroid Normal Size and Texture Lungs: Clear to auscultation, Normal air movement, No rhonchi, No wheeze, No rales, Diminished Cardiovascular: Regular rate, Regular Rhythm, Normal S1, Normal S2, PMI Normal Abdomen: Bowel Sounds Present, Soft, Non Tender, Non-Distended, No Hepato-splenomegaly Extremities: No clubbing, No cyanosis, No edema Skin: No rashes, No breakdown Lymphatic: No Cervical, Supraclavicular, or Inguinal Adenopathy Neurological: Cranial nerves II-XII grossly intact, Neuro grossly intact Psych/Mental Status: Normal Affect, Appropriate Vital Signs Temp Pulse Resp BP Pulse Ox 98.1 F 72 18 118/83 H 95 01/19/19 03:20 01/19/19 06:57 01/19/19 03:20 01/19/19 03:20 01/19/19 03:20 Oxygen Flow Rate (L/min) 1.5 Oxygen Delivery Method Room Air Weight: 147 lb 14.883 oz Body Mass Index (BMI) 21.8 Intake and Output for Last 24 Hours 01/17/19 01/18/19 01/19/19 23:59 23:59 23:59 Intake Total 2192 / 2192 2304 / 2304 Output Total 575 / 575 1000 / 1000 150 / 150 Balance 1617 / 1617 1304 / 1304 -150 / -150 Microbiology Past 72 Hours 01/14/19 13:47 Blood Culture - Preliminary Blood Culture (Wb) #2 - Anticubital Right No growth in 48 hours. 01/14/19 12:55 Blood Culture - Preliminary Blood Culture (Wb) - Left Forearm No growth in 48 hours. Laboratory Tests Past 24 Hrs 01/15/19 01/15/19 01/18/19 09:15 09:15 17:10 Magnesium 2.3 Vitamin B12 355 Vitamin D 25-Hydroxy 36.8 RBC Folate Hemolysate 305.2 RBC Folate 933 Hematocrit 32.7 L Medical Necessity - Tobacco Use Smoking Status: Former smoker Tobacco Use: Non-smoker Assessment/Plan All Active Problems (Last Updated 01/14/19 @ 16:41 by Dieter Mcleod DO) Right ventricular failure (Acute) Lactic acidosis (Acute) Elevated LFTs (Acute) Acute kidney injury superimposed on CKD (Acute) NSTEMI (non-ST elevated myocardial infarction) (Acute) This is an 83 years old male patient admitted because of weakness, found to have acute non-ST elevation SC, acute kidney injury on top of stage III chronic kidney disease, elevated LFT and acute right ventricular failure as well as worsening confusion/encephalopathy. #1 acute non-ST elevation SC/acute right ventricular failure: Status post cardiac catheterization, revealed 40% stenosis of the left main coronary artery, mild diffuse disease of the LAD and left circumflex, 100% stenosis of the proximal RCA with faint [id number] collaterals, no interventions performed. He is on aspirin and Plavix. rin, Plavix. He is not on ANTONIO inhibitors or beta-blockers because of intermittent bradycardia and also because of acute kidney injury. 2D echocardiogram revealed ejection fraction of 40 to 45%, severe global right ventricular systolic function, severely dilated right ventricle, hypokinesis of the inferior wall and inferoseptal wall. Cardiology on the case. Patient had runs of nonsustained V. tach night before last. Discussed with cardiology about starting amiodarone. Awaiting recommendations. Patient will need PT OT evaluation and treatment and likely [facility] facility placement. #2 encephalopathy/confusion: His mental status improved, more alert and coherent but remained intimately confused and disoriented. He had history of suspected mild dementia, getting worse nowadays according to the patient's . He has no focal deficit. CT scan brain showed no acute findings. #3 acute kidney injury on top of stage III chronic kidney disease: Baseline creatinine has been around 1.3 to 1.4 mg/dL. Admission creatinine is 1.84, yesterday's creatinine is 1.29, improving. #4 elevated LFT: Attributed to liver congestion secondary to right ventricular failure. Liver transaminases are trending down, bilirubin is back to normal. Patient denied any right upper quadrant abdominal pain. #5 lactic acidosis?leukocytosis: Without source of infection. Lactic acid is 3.1, came down to 2.6 with IV fluids. He remains afebrile, white blood count is trending down. This is probably due to tissue hypoperfusion secondary to RV failure. Chest x-ray showed no acute infiltrate or consolidation. UA was negative for acute cystitis. Stool for C. difficile was negative. Blood cultures showed no growth in 48 hours. #6 DVT prophylaxis: SCDs. #7 CODE STATUS: DNR CCA, discussed with the patient's and son. This note was generated with [employer] dictation software. It may contain incorrect words, spelling, and punctuation that were not noted in checking the note before signing. Code Visit Inpatient E&M: 04212 Subs Hosp L2
[2019-01-19 09:20] VITALS: BP 100/59; PULSE 59; RESP 16; TEMP 36.7; O2SAT 97
--- NOTE | 2019-01-19 12:11 | PCM.TXEXTCAR ---
- Diet 01/18/19 12:07 Diet: Cardiac/Low Cholesterol Is pt able to select menu?: Yes - Routine Orders/Code Status Code Status: DNRCC-A - Wound(s) right wrist Wound Type: Pressure Injury - Suggestions for Active Care Change Position every (hours): 3 Hours to sit in a chair: 2 Times a day to sit in chair: 3 - Therapies Weight Bearing: Weight bearing as tolerated Physical Therapy: Eval and Treat Occupational Therapy: Eval and Treat - Allergies/Procedures Done in Hospital Allergies/Adverse Reactions: Allergies No Known Allergies Allergy (Verified 01/14/19 12:59) - Type of Care/Length of Stay Estimated LOS: Convalescent Care Less Than 30 days Type of Care Needed: Skilled Rehab Potential: Fair Prognosis: Fair - Additional Orders/Day of Discharge H&P will serve as current which was dated: 01/14/19 Day of Discharge: 01/19/19 - Dietary and Speech Recommendations Dietitian Recommendations/Changes: Suggest readvance Cardiac Diet as able after cath. Please reweigh as able. - Follow Up Care Primary Care Physician: Wale Obregon [Primary Care Provider] - Please follow up with your Primary Care Physician in: 1-2 weeks. Please Follow Up With: Lisa Hobson MD When: 2-4 weeks.
--- NOTE | 2019-01-19 12:28 | CASEMGMT ---
Patient is ready for discharge to TCU today. SCARLET copied orders. SW called patient's and let her know patient is being discharged to [facility] TCU today. She said they will be in to the hospital in a little bit and asked that he stay until they arrive. SCARLET will notify RN. Plan: [facility] TCU under skilled level of care. Patricia RANDALL MSW
--- NOTE | 2019-01-19 12:54 | PCM.DC.SUM ---
Discharge Date and Diagnosis - Problem List Patient Problems: Active and Suspected Problems (Last Updated 01/14/19 @ 16:41 by Dieter Mcleod DO) NSTEMI (non-ST elevated myocardial infarction) (Acute) Date of Admission: 01/14/19 Date of Discharge: 01/19/19 - Primary Discharge Diagnosis Active and Suspected Problems (Last Updated 01/14/19 @ 16:41 by Dieter Mcleod DO) #1 acute non-ST elevation VA. #2 acute right ventricular failure. #3 frequent runs of nonsustained V. tach. Asymptomatic. #4 acute kidney injury on top of stage III chronic kidney disease. #5 encephalopathy/worsening confusion. #6 lactic acidosis, leukocytosis, attributed to body response to tissue hypoperfusion. Infection ruled out. - Secondary Discharge Diagnosis Chronic Problems (Last Updated 01/14/19 @ 16:41 by Dieter Mcleod DO) Stage III chronic kidney disease (Chronic) Hospital Course and Treatment Imaging Results: Clinical Impression(s) from Imaging Studies Chest X-Ray 01/14/19 13:21 IMPRESSION: Degenerative changes, as described above. No demonstrated acute cardiopulmonary process. Electronically Signed: Byron Lyle MD at 13:36 EDT , Service support , Brain CT 01/15/19 14:13 IMPRESSION: 1. No acute intracranial hemorrhage or mass effect. 2. Central parenchymal volume loss. White matter changes that are nonspecific but most commonly associated with chronic small vessel ischemic disease. Electronically Signed: David Wheat MD at 14:49 EDT , Service support , Dr. Hobson, cardiology. Operations: None Procedures: 2-D Echocardiogram, Cardiac catheterization, EKG Summary of Care Provided: Patient seen and examined on the day of discharge and appeared to be stable to be discharged to TCU today. He denies any symptoms. He remained intermittently confused and disoriented which seemed to be his baseline. His vital signs are stable. Reportedly, no runs of V. tach overnight. This is an 83 years old male patient admitted because of weakness, found to have acute non-ST elevation VA, acute kidney injury on top of stage III chronic kidney disease, elevated LFT and acute right ventricular failure as well as worsening confusion/encephalopathy. #1 acute non-ST elevation VA/acute right ventricular failure: Treated medically with aspirin and Plavix as well as IV fluids. Cardiology consulted and patient underwent cardiac catheterization, revealed 40% stenosis of the left main coronary artery, mild diffuse disease of the LAD and left circumflex, 100% stenosis of the proximal RCA with faint [id number] collaterals, no interventions performed. Patient was not on TATO inhibitors or beta-blockers because of intermittent bradycardia and also because of acute kidney injury. 2D echocardiogram revealed ejection fraction of 40 to 45%, severe global right ventricular systolic function, severely dilated right ventricle, hypokinesis of the inferior wall and inferoseptal wall. Patient had runs of nonsustained V. tach in the last first 2 months. The night before discharge, he has no more runs of V. tach. Serum electrolytes were normal. Patient discharged to TCU in a stable medical condition, discharged on aspirin, Plavix and statins. #2 encephalopathy/confusion: Attributed to acute illness, acute STEMI and tissue hypoperfusion secondary to hypotension which was improved. Patient does have a history of probable baseline dementia. He has no focal deficit. CT scan brain showed no acute findings. Patient remained intermittently confused and disoriented throughout the stay. #3 acute kidney injury on top of stage III chronic kidney disease: Baseline creatinine has been around 1.3 to 1.4 mg/dL. It is attributed to hypotension and right ventricular failure. Admission creatinine is 1.84, treated with IV fluids and upon discharge, creatinine was 1.29, improved. #4 elevated LFT: Attributed to liver congestion secondary to right ventricular failure. Liver transaminases are trending down, bilirubin is back to normal. Patient denied any right upper quadrant abdominal pain. #5 lactic acidosis?leukocytosis: Secondary to tissue hypoperfusion. There was no evidence of infection. Patient remained afebrile throughout admission. Vitals count trended down and lactic acid improved with IV fluids. Chest x-ray showed no acute infiltrate or consolidation. UA was negative for acute cystitis. Stool for C. difficile was negative. Blood cultures showed no growth in 48 hours. Patient was seen and evaluated by PT OT, stated that patient is very weak and not able to stand on his feet and he required significant assistance. Patient discharged to TCU in a stable medical condition, discharged on aspirin, Plavix and statins, maintained on his previous home medications without any changes, plan to follow-up with cardiology in 2 to 4 weeks, recommended follow-up with PCP in 1 to 2 weeks. This note was generated with [employer] dictation software. It may contain incorrect words, spelling, and punctuation that were not noted in checking the note before signing. Patient Problems: Active and Suspected Problems (Last Updated 01/14/19 @ 16:41 by Dieter Mcleod DO) NSTEMI (non-ST elevated myocardial infarction) (Acute) - Physical Exam General: Alert, Cooperative, No apparent distress HEENT: Atraumatic, PERRLA, EOMI, Normocephalic Oral: Moist Mucosa, No Gingival or Mucosal Lesions/ Ulcerations Neck: Supple, No JVD, Negative Carotid Bruits, Trachea Midline, Thyroid Normal Size and Texture Lungs: Clear to auscultation, Normal air movement, No rhonchi, No wheeze, No rales, Diminished Cardiovascular: Regular rate, Regular Rhythm, Normal S1, Normal S2, PMI Normal Abdomen: Bowel Sounds Present, Soft, Non Tender, Non-Distended, No Hepato-splenomegaly Extremities: No clubbing, No cyanosis, No edema Skin: No rashes, No breakdown Lymphatic: No Cervical, Supraclavicular, or Inguinal Adenopathy Neurological: Cranial nerves II-XII grossly intact, Neuro grossly intact Vital Signs Temp Pulse Resp BP Pulse Ox 98.1 F 59 L 16 100/59 L 97 01/19/19 09:20 01/19/19 09:20 01/19/19 09:20 01/19/19 09:20 01/19/19 09:20 Oxygen Flow Rate (L/min) 1.5 Oxygen Delivery Method Room Air Weight: 147 lb 14.883 oz Body Mass Index (BMI) 21.8 Intake and Output for Last 24 Hours 01/17/19 01/18/19 01/19/19 23:59 23:59 23:59 Intake Total 2192 / 2192 2304 / 2304 240 / 240 Output Total 575 / 575 1000 / 1000 350 / 350 Balance 1617 / 1617 1304 / 1304 -110 / -110 Microbiology Past 72 Hours 01/14/19 13:47 Blood Culture - Preliminary Blood Culture (Wb) #2 - Anticubital Right No growth in 48 hours. 01/14/19 12:55 Blood Culture - Preliminary Blood Culture (Wb) - Left Forearm No growth in 48 hours. Laboratory Tests Past 24 Hrs 01/15/19 01/18/19 09:15 17:10 Magnesium 2.3 RBC Folate Hemolysate 305.2 RBC Folate 933 Hematocrit 32.7 L Home Medications: Medications to take at Discharge Aspirin [Aspir 81] 81 mg PO DAILY 01/14/19 Ketoconazole 1 applic TP UD 01/14/19 Temazepam 30 mg PO QHS 01/14/19 Terazosin HCl 5 mg PO DAILY 01/14/19 Atorvastatin Calcium [Lipitor] 40 mg PO QHS #90 tab 01/19/19 Clopidogrel Bisulfate [Plavix] 75 mg PO DAILY #90 tab 01/19/19 Following Prescrptions Were Given to Patient: Atorvastatin Calcium [Lipitor] 40 mg PO QHS #90 tab Prescription Printed Clopidogrel Bisulfate [Plavix] 75 mg PO DAILY #90 tab Prescription Printed Primary Care Physician: Wale Obregon [Primary Care Provider] - Please follow up with your Primary Care Physician in: 1-2 weeks. Please Follow Up With: Lisa Hobson MD When: 2-4 weeks. Disposition: [facility] facility Minutes spent on discharge:: 35 Patient Condition:: Stable Medical Necessity - Tobacco Use Smoking Status: Former smoker Tobacco Use: Non-smoker Meaningful Use Info Meaningful Use Diagnoses (Choose all that apply): AMI - AMI Aspirin given w/in 24hrs of arrival?: Yes ASA at discharge?: Yes Statins at discharge?: Yes Tato/ARB at discharge?: No Reason Tato/ARB not ordered:: Worsening renal disease Beta Elias at discharge?: No Reason Beta Elias not ordered:: Hypotension Done w/ Acute VA measure.: Yes Documented LVEF (%): 45 Code Visit Inpatient E&M: 50993 Disch Hosp
--- NOTE | 2019-01-19 13:12 | NURSING ---
report given to supriya ellis in TCU
[2019-01-19] MEDS: Docusate Sodium 100 MG Capsule PO (13:16)
--- NOTE | 2019-01-19 15:26 | PCM.PN.CARD ---
Subjectve: Patient appears comfortable and denies any complaints. Telemetry reviewed. No further nonsustained V. tach or significant bradycardia since last afternoon. Objective: Vital Signs Temp Pulse Resp BP Pulse Ox 98.1 F 59 L 16 100/59 L 97 01/19/19 09:20 01/19/19 09:20 01/19/19 09:20 01/19/19 09:20 01/19/19 09:20 Oxygen Flow Rate (L/min) 1.5 Oxygen Delivery Method Room Air Weight: 147 lb 14.883 oz Body Mass Index (BMI) 21.8 Intake and Output for Last 24 Hours 01/17/19 01/18/19 01/19/19 23:59 23:59 23:59 Intake Total 2192 / 2192 2304 / 2304 240 / 240 Output Total 575 / 575 1000 / 1000 350 / 350 Balance 1617 / 1617 1304 / 1304 -110 / -110 General: Awake HEENT: Atraumatic Oral: Moist Mucosa Neck: Supple Lungs: Clear to auscultation Cardiovascular: Normal S1, Normal S2 Abdomen: Soft Extremities: No edema Skin: No Rashes Psych/Mental Status: Appropriate 01/18/19 17:10: Magnesium 2.3 Rhythm: EKG: ECHO: Stress Test: Cardiac Cath: PCI: CT Surgery: Holter monitor: EPS: PPM: CXR: Chest CT Scan: Medical Necessity - Tobacco Use Smoking Status: Former smoker Tobacco Use: Non-smoker Assessment/Plan 1. Acute coronary syndrome: Patient appears to be having a subacute presentation of inferior myocardial infarction with probably RV involvement. His mentation has improved and appears to be at baseline. Coronary angiography revealed 100% occlusion of the RCA. We will treat this medically at this time. 2. Bradycardia: No significant episodes overnight. 3. LV dysfunction: Patient has mild to moderate LV systolic dysfunction which is new compared to prior echo. This seems to be related to his subacute inferior AK. No ANTONIO or beta blockers at this time because of low blood pressure. 4. Nonsustained V. tach: Patient cannot be on a beta-dm yet due to low blood pressure. Potassium was 4. Magnesium level was 2.4. No further episodes since last afternoon. Patient can be transferred to transitional care unit from a cardiac standpoint.
== END 2019-01-19 16:34 | disposition skilled nursing facility (03) | DRG 281 ==
LOC: ED 15:38 → PCU 16:10
PROVIDERS: Emergency Medicine; Family Medicine; Specialist; Emergency Provider Emergency Medicine; Family Provider Family Medicine; Visit Provider Hospitalist
DX: I21.4 Non-ST elevation (NSTEMI) myocardial infarction (principal); N17.9 Acute kidney failure, unspecified; E87.2 Acidosis; I47.2 Ventricular tachycardia; G93.40 Encephalopathy, unspecified; E86.0 Dehydration; I50.811 Acute right heart failure; N18.3 Chronic kidney disease, stage 3 (moderate); I25.10 Atherosclerotic heart disease of native coronary artery without angina pectoris; K76.1 Chronic passive congestion of liver; Z87.891 Personal history of nicotine dependence
CPT/HCPCS: 36415; 70450; 71046; 80048; 80053; 80061; 80076; 81001; 82274; 82306; 82607; 82747; 83605; 83690; 83735; 84443; 84484; 85014; 85025; 85610; 85730; 87040; 87493; 93005; 93306; 93454; 94760; 97110; 97162; 97166; 97530; 99251; 99285; J7030; P9612; Q9957; A4216; C1769; C1894; G0463; Q9967

== ENCOUNTER 2019-01-19 16:51 | Inpatient (IN) | payer MEDICARE, BC, SELFPAY ==
[2019-01-14 16:46] VITALS: BMI 21.8
--- NOTE | 2019-01-19 17:26 | NURSING ---
Patient admitted to room 22 from [facility] via bed. Oriented to room and call light system explained.
[2019-01-19 17:56] VITALS: BMI 21.8
[2019-01-19 18:01] VITALS: BMI 21.8
[2019-01-19] MEDS: Atorvastatin Calcium 40 MG Tablet PO (21:11)
[2019-01-19] MEDS: Temazepam 15 MG Capsule 30 MG PO (21:11)
--- NOTE | 2019-01-19 23:44 | HP.PCM_ITS ---
Problem List (1) Weakness Status: Acute (2) Debility Status: Acute (3) Encephalopathy Status: Acute (4) Dehydration Status: Acute (5) Osteoarthritis of knee Status: Chronic (6) Insomnia Status: Chronic (7) BPH (benign prostatic hyperplasia) Status: Chronic (8) Right ventricular failure Status: Acute (9) Lactic acidosis Status: Acute (10) Elevated LFTs Status: Acute (11) Acute kidney injury superimposed on CKD Status: Acute (12) Stage III chronic kidney disease Status: Chronic (13) NSTEMI (non-ST elevated myocardial infarction) Status: Acute History of Present Illness Date of Admission: 01/18/19 Chief Complaint: Here for rehabilitation, strengthening, prior to discharge home with spouse. The patient is a 83 year old Male with below past medical history presented to [facility] with weakness. 01/14/2019 Chest X-ray showed degenerative changes, no acute findings. 01/14/2019 EKG sinus bradycardia with frequent premature ventricular contractions in bigeminy pattern, left axis deviation, low voltage QRS, Possible lateral infarct, age undetermined; inferior infarct, age undetermined. Generalized weakness, patient pursuing knee replacement in [place], underwent presurgical testing. EKG abnormal, recommended stress test, cardiology evaluation. Labs looked dehydrated, IV fluids recommended. Patient has been feeling worse since coming back from [place]. Difficulty getting out of bed. WBC 15.7, Hemoglobin 12.4, BUN 45, Cr 1.84. Lactic acid 3.1, Troponin 43.9. Cardiology called, IV fluids, Heparin drip started. 01/14/2019 Admit to Hospital. Cardiology consult, cycle cardiac enzymes for NSTEMI. IV fluids for acute kidney injury. Consider geriatric assessment for dementia, driving. 01/15/2019 Echo EF 40 to 45 % Hypokinesis of inferior wall, inferoseptum. Severe global RV systolic dysfunction. Severely dilated RV. RA severely enlarged. 01/18/2019 Left heart catheterization showed proximal RCA 100% stenosis with faint collaterals. 40% stenosis left main coronary artery. No stents recommended. Coronary artery disease medically treated with Aspirin, Plavix, Statin. Non-sustained V tach resolved. Encephalopathy waxing and waning. Elevated liver enzymes secondary to liver congestion secondary to right heart failure. Urine culture negative, blood culture negative, C. Diff negative. Lactic acidosis not related to infection. 01/19/2019 Admit to TCU with debility, here for rehabilitation, strengthening, prior to discharge home with spouse. Past Medical History Past Medical History (Chronic Problems): Chronic Problems (Last Updated 01/14/19 @ 16:41 by Dieter Mcleod DO) Osteoarthritis of knee (Chronic) Insomnia (Chronic) BPH (benign prostatic hyperplasia) (Chronic) Stage III chronic kidney disease (Chronic) Medical History: Medical History (Last Updated 01/14/19 @ 16:41 by Dieter Mcleod DO) Osteoarthritis M19.90 Allergies No Known Allergies Allergy (Verified 01/14/19 12:59) Home Medications: Ambulatory Orders Medication Instructions Recorded Aspirin [Aspir 81] 81 mg PO DAILY 01/14/19 Ketoconazole 1 applic TP UD 01/14/19 Temazepam 30 mg PO QHS 01/14/19 Terazosin HCl 5 mg PO DAILY 01/14/19 Atorvastatin Calcium [Lipitor] 40 mg PO QHS 01/19/19 Clopidogrel Bisulfate [Plavix] 75 mg PO DAILY 01/19/19 Surgical History: no surgical history Psychiatric History: No pertinent psych hx Lives: Spouse/ Significant Other Smoking Status: Former smoker Tobacco Use: Non-smoker Alcohol: None Drugs: None - *Family History Maternal History Items: - - Not able to adequately obtain as the patient is confused Paternal History Items: No pertinent history Review of Systems Constitutional: Denies: Chills, Fever, Weight Change HEENT: Denies: Head Aches, Sinus Congestion, Sinus Drainage Cardiovascular: Denies: Chest Pain, Palpitations Respiratory: Denies: Cough, Shortness of breath at rest, Sputum production Gastrointestinal: Denies: Abdominal Pain, Nausea, Vomiting Genitourinary: Denies: Dysuria Musculoskeletal: Denies: Joint Pain, Joint Tenderness Skin: Denies: Rash, Wounds Neurological: Denies: Numbness, Tingling, Focal weakness Psychiatric: Denies: Anxiety, Depression, Homicidal Ideations, Suicidal Ideations Hematologic/ Lymphatic: Denies: Easy Bruising, Easy Bleeding VTE Information - Inpt Only VTE Present on Admission: No VTE Mechan Device Prophylaxis: Knee High KIRA Hose VTE Pharm Prophylaxis ordered?: No Reason prophylaxis not ordered:: Medical Contraindication Patient Problems: Active and Suspected Problems (Last Updated 01/14/19 @ 16:41 by Dieter Mcleod DO) Weakness (Acute) Debility (Acute) Encephalopathy (Acute) Dehydration (Acute) - Physical Exam General: Alert, Oriented x3, Cooperative HEENT: Atraumatic, PERRLA, EOMI, Normocephalic Neck: Supple, No JVD, Negative Carotid Bruits Lungs: Clear to auscultation, Normal air movement Cardiovascular: Regular rate, No murmurs Abdomen: Bowel Sounds Present, Soft, Non Tender, - - Indwelling tate catheter. Extremities: No edema, Capillary Refill Less than 3 Seconds Skin: No rashes, No breakdown Musculoskeletal: No Tenderness to Palpation of Joints or Extremities Neurological: Cranial nerves II-XII grossly intact Psych/Mental Status: Normal Affect, Appropriate Oxygen Delivery Method Room Air Weight: 67 kg Body Mass Index (BMI) 21.8 Assessment/Plan All Active Problems (Last Updated 01/14/19 @ 16:41 by Dieter Mcleod DO) Weakness (Acute) Debility (Acute) Encephalopathy (Acute) Dehydration (Acute) Right ventricular failure (Acute) Lactic acidosis (Acute) Elevated LFTs (Acute) Acute kidney injury superimposed on CKD (Acute) NSTEMI (non-ST elevated myocardial infarction) (Acute) 83 year old male with below past medical history hospitalized for NSTEMI, coronary artery disease treated medically, complicated by encephalopathy, elevated liver enzymes, admitted to TCU with debility, here for rehabilitation, strengthening, prior to discharge home with spouse. * Debility - PT/OT. * Pain - Tylenol 1000MG Q6H PRN mild pain. * Bowel - Miralax 17GM daily, Senna/colace 1 tablet BID, Dulcolax 10MG daily PRN. * Pneumonia vaccination - Administer Prevnar 13 and/or Pneumovax 23 as necessary. * DVT prophylaxis - Hold, resident already on dual antiplatelet agents. * Coronary Artery Disease - Plavix 75MG daily, Aspirin 81MG daily, consider low dose beta dm and/or sanjuana inhibitor if blood pressure, heart rate tolerates. * Hyperlipidemia - Atorvastatin 40MG QHS. * BPH - Doxazosin 4MG daily. * Insomnia - Temazepam 30MG QHS, chronic intermediate use of [employer], risk of withdrawal outweigh benefits of not being on benzodiazepine, do not recommend GDR. * Encephalopathy - Monitor, should improve over time. Spoke with to try to explain why resident is confused. * Alzheimer's Disease - resident may have underlying Alzheimer's Disease, consider outpatient assessment and treatment if appropriate.
[2019-01-20] MEDS: Acetaminophen 500 MG Tablet 1000 MG PO ×2 (01:33→21:24)
[2019-01-20] MEDS: Bisacodyl 5 MG Tablet 10 MG PO (01:34)
--- NOTE | 2019-01-20 01:47 | NURSING ---
patient's bed alarm sounding. per pt was trying to get OOB. pt confused stating he was sideways on the side of a hill. reorientation unsuccessful. pt grimacing & c/o generalized pain. PRN tylenol administered and dulcolax due to LBM 01/16. patient chewing medications and having difficulty swallowing. previously, patient took medications whole in applesauce with no difficulty for this RN. patient drank water with nurse assist. speech therapy consulted. remains at bedside. PA on and functioning. call light within reach.
[2019-01-20] MEDS: Polyethylene Glycol 3350 17 GM PACKET PO (04:58)
[2019-01-20] MEDS: Clopidogrel Bisulfate 75 MG Tablet PO (05:00)
[2019-01-20] MEDS: Doxazosin 4 MG Tablet PO (05:00)
[2019-01-20] MEDS: Senna/Docusate Sodium 1 Tablet PO ×2 (05:01→18:02)
[2019-01-20 05:02] VITALS: BP 108/71; PULSE 74
[2019-01-20 05:53] LABS: Absolute Lymphocyte Count 0.52 X10^3/uL (0.83-4.51); Absolute Neutrophil Count 11.3 X10^3/uL (2.0-7.7); Basophil# 0.01 X10^3/uL; Basophil% 0.1 % (0-1); Eosinophil# 0.03 X10^3/uL; Eosinophils% 0.2 % (0-5); Hematocrit 33.6 % (40-54); Hemoglobin 10.8 g/dL (13.0-16.5); Lymphocyte # 0.52 X10^3/ul (4.0); Lymphocyte % 4.1 % (19-41); Mean Corp Hgb Conc 32.1 g/dL (32-36); Mean Corpuscular Hgb 30.8 pg (27.0-32.0); Mean Corpuscular Volume 95.7 fL (80-94); Monocyte# 0.87 X10^3/uL; Monocyte% 6.8 % (0-10); NRBC Flagged by Analyzer 0.3 % (0-5); Neutrophil # 11.25 X10^3/uL (2.7-7.7); Neutrophil % 87.8 % (47-70); POSITIVE DIFFERENTIAL YES; Platelet Count 138 K/mm3 (150-450); RBC Distribution Width CV 14.8 % (11.6-14.6); Red Blood Count 3.51 M/mm3 (4.6-6.2); White Blood Count 12.8 K/mm3 (4.4-11.0)
[2019-01-20 06:04] LABS: Differential Indicated SCAN CRITERIA MET
[2019-01-20 06:06] LABS: Anion Gap 11 (5-15); BUN 54 mg/dL (7-18); BUN/Creat Ratio 42.2 RATIO (10-20); Calcium,Total 8.4 mg/dL (8.5-10.1); Chloride 113 mmol/L (98-107); Creatinine, Serum 1.28 mg/dL (0.70-1.30); EST Glomerular Filtration Rate 57 mL/min (>60); Est Glom Filt Rate - Afr Amer 69 mL/min (>60); Estimated Creatinine Clearance 41.44 ml/min; Glucose 117 mg/dL (74-106); Potassium 3.7 mmol/L (3.5-5.1); Sodium Level 143 mmol/L (136-145)
[2019-01-20 06:53] LABS: Differential Comment SCANNED
--- NOTE | 2019-01-20 09:03 | NURSING ---
pt sleeping, reported did not sleep well lastnight. Will try back to administer Aspirin. pt agreeable.
--- NOTE | 2019-01-20 10:24 | NURSING ---
Dr lott in to see pt, new order for SSE x1, DC tate w/trial voiding trials.
[2019-01-20] MEDS: Tuberculin,Purif.prot.deriv. 50 TU/ML Vial 5 ML ID (11:51)
[2019-01-20] MEDS: Aspirin E.C. 81 MG Tablet PO (11:51)
--- NOTE | 2019-01-20 11:57 | NURSING ---
Sitting up in chair. Resident alert and awake. goes to give resident a spoonful of food and resident gags. States he has been having these responses when he goes to eat. Reports not feeling sick to his stomach. Order placed for speech therapy to see for evaluation with swallowing.
--- NOTE | 2019-01-20 13:09 | NURSING ---
Resident back in bed at this time. Was up in chair for lunch. at bedside and requesting that enema not be given till after physical therapy. States resident is very tired and is wanting to rest.
[2019-01-20 16:00] VITALS: BP 117/77; PULSE 73; RESP 16; TEMP 36.6; O2SAT 92
--- NOTE | 2019-01-20 17:24 | NURSING ---
Soap suds enema given with small results. Dr Chen aware. Dr Chen aware that resident complains of feeling nauseous and not eating well. Dr chen in residents room and talking to spouse, resident, and resident's son.
[2019-01-20] MEDS: Ondansetron ODT 4 MG Tablet PO (18:02)
[2019-01-20] MEDS: Atorvastatin Calcium 40 MG Tablet PO (21:18)
[2019-01-20] MEDS: Temazepam 15 MG Capsule PO (21:24)
[2019-01-20] MEDS: MELATONIN 10 MG TABLET PO (21:24)
[2019-01-20] MEDS: Menthol/Lanolin/Calamine/Znox 113 GM Tube 1 APPLIC TOPICAL (21:25)
[2019-01-20] MEDS: Nystatin Powder 15gm Bottle 1 APPLIC TOPICAL (21:26)
--- NOTE | 2019-01-20 21:45 | NURSING ---
white coating noted to tongue this evening. Dr. Chen notified & new orders received for nystatin swish & swallow. pt took PM medications crushed in applesauce with nectar thickened liquids without difficulty. PRN tylenol administered for c/o arm pain. family at bedside and updated on POC.
[2019-01-20] MEDS: NYSTATIN 500,000 UNIT/5 ML UDC 500000 UNIT PO (22:45)
[2019-01-21] MEDS: Nystatin Powder 15gm Bottle 1 APPLIC TOPICAL ×2 (05:30→21:37)
[2019-01-21] MEDS: Menthol/Lanolin/Calamine/Znox 113 GM Tube 1 APPLIC TOPICAL ×3 (05:30→21:38)
[2019-01-21] MEDS: Polyethylene Glycol 3350 17 GM PACKET PO (05:38)
[2019-01-21] MEDS: Senna/Docusate Sodium 1 Tablet PO ×2 (05:38→18:15)
[2019-01-21] MEDS: Clopidogrel Bisulfate 75 MG Tablet PO (05:38)
[2019-01-21] MEDS: Doxazosin 4 MG Tablet PO (05:38)
[2019-01-21] MEDS: NYSTATIN 500,000 UNIT/5 ML UDC 500000 UNIT PO ×4 (05:39→21:37)
[2019-01-21] MEDS: Bisacodyl 5 MG Tablet 10 MG PO (05:40)
--- NOTE | 2019-01-21 06:46 | NURSING ---
Penis and scrotum noted to have increased edema. Site cleansed and elevated. Pt denies pain. Will update Dr. Chen. Oncoming RN notified. Pt has not voided since tate D/C'd. See documentation for bladder scan results.
[2019-01-21] MEDS: Aspirin E.C. 81 MG Tablet PO (09:24)
[2019-01-21] MEDS: Magnesium Citrate 300 ML PO (09:26)
[2019-01-21] MEDS: Acetaminophen 500 MG Tablet 1000 MG PO (09:26)
--- NOTE | 2019-01-21 09:55 | CASEMGMT ---
Social Work Spoke with for initial assessment as patient is confused and cannot accurately answer questions. Per chart review, was provided information on private duty aides and SNFs. Educated to SW role, Medicare benefit, and active discharge planning begins at admission. Encouraged to speak with pt and think about potentially discharge plans and SW can help with that along with the financial aspect. had difficulty understanding the information, processing and recalling. Reexplained the information to assist in understanding. will contact SW with any further questions. Will continue to follow. Dinorah Cortes, [employer]IM[employer]ENT [employer]PER[employer]OR [employer]
--- NOTE | 2019-01-21 13:52 | NURSING ---
Addendum entered by Cookie Benitez 01/21/19 16:41: New order to run x1 1L bag of NS and then go down to 60mL/hr. Original Note: New order to D/C Restoril, decrease melatonin to 3mg qHS, start IV NS @ 60mL/hr and KUB.
--- NOTE | 2019-01-21 14:10 | RAD_ITS ---
STUDY: X-RAY - ABDOMEN/PELVIS REASON FOR EXAM: Male, 83 years old. Constipation. TECHNIQUE: Single AP view of the abdomen / pelvis. COMPARISON: None. FINDINGS: Diffuse gaseous distention of the colon down to the region of the rectum sigmoid colon. The visualized liver, spleen and kidneys are grossly normal in size and morphology. Normal soft tissue structures. There are diffuse degenerative changes of the visualized lumbar spine. RAD/Abdomen Single View IMPRESSION: Gaseous distention of the colon down to the rectosigmoid junction. Electronically Signed: Yoni Salinas, at 14:33 EDT , Service support ,
[2019-01-21] MEDS: 0.9% Normal Saline 1,000 ML 60 ML IV (15:16)
[2019-01-21 15:58] VITALS: BP 103/67; PULSE 69; RESP 20; TEMP 36.8
[2019-01-21] MEDS: 0.9% Normal Saline 1,000 ML 999 ML IV (16:09)
[2019-01-21] MEDS: Carbidopa/Levodopa 10/100 Tablet PO (18:14)
[2019-01-21] MEDS: MELATONIN 3 MG TABLET PO (21:37)
[2019-01-21] MEDS: Atorvastatin Calcium 40 MG Tablet PO (21:37)
--- NOTE | 2019-01-22 01:23 | NURSING ---
Patient calling out stating he feels short of breath, when staff went in patient resp easy and unlabored yet at times noted as having hiccups. VS assessed, R18, Sp02 92%-94% on RA. lung assessment completed, posterior lungs very diminished with fine crackles in bases. RT called for second assessment and agreed with assessment. 02 applied for comfort measures at 2L NC, Sp02 98%. Patient stated also at this time he felt like he needed to void, unable to void using urinal. Patient bladder scanned, then straight cathed per orders for approx 250mls of jennifer colored strong smelling urine. Patient tolerated st. cath well. Penis and scrotum noted as being very edematous, remains elevated on folded towel. IVF continue at 60mls/hour of NS, will continue to monitor.
[2019-01-22 01:29] VITALS: BP 99/72; PULSE 71; RESP 18; TEMP 36.4; O2SAT 98
[2019-01-22] MEDS: Acetaminophen 500 MG Tablet 1000 MG PO ×2 (02:25→21:36)
[2019-01-22] MEDS: Menthol/Lanolin/Calamine/Znox 113 GM Tube 1 APPLIC TOPICAL ×3 (06:27→21:54)
[2019-01-22] MEDS: Senna/Docusate Sodium 1 Tablet PO ×2 (06:27→18:06)
[2019-01-22] MEDS: Doxazosin 4 MG Tablet PO (06:27)
[2019-01-22] MEDS: Clopidogrel Bisulfate 75 MG Tablet PO (06:27)
[2019-01-22] MEDS: Polyethylene Glycol 3350 17 GM PACKET PO (06:27)
[2019-01-22] MEDS: Carbidopa/Levodopa 10/100 Tablet PO ×2 (06:27→18:06)
[2019-01-22] MEDS: NYSTATIN 500,000 UNIT/5 ML UDC 500000 UNIT PO ×3 (06:27→21:39)
[2019-01-22] MEDS: Nystatin Powder 15gm Bottle 1 APPLIC TOPICAL ×2 (06:28→21:53)
--- NOTE | 2019-01-22 06:52 | NURSING ---
Dr. Chen notified of patient not sleeping last night. Orders given to increase melatonin to 10 mg. Orders given to d/c IV fluids and to hand feed patient to make sure that he is eating.
[2019-01-22] MEDS: Aspirin E.C. 81 MG Tablet PO (08:39)
[2019-01-22] MEDS: Ketoconazole Cream 1 APPLIC TOPICAL (08:40)
[2019-01-22 11:41] VITALS: O2SAT 92
[2019-01-22] MEDS: Ondansetron ODT 4 MG Tablet PO ×2 (13:12→21:37)
[2019-01-22 15:21] VITALS: BP 103/67; PULSE 78; RESP 18; TEMP 36.8; O2SAT 94
--- NOTE | 2019-01-22 20:37 | NURSING ---
Dr. Chen notified of patient continuing to refuse meals and that patient has not been voiding on on and requiring straight inderjit. Orders given to d/c melatonin. order for remeron 7.5 mg HS and NS 75 cc/hr. Straight inderjit prn.
[2019-01-22] MEDS: Mirtazapine 15 MG Tablet 7.5 MG PO (21:37)
[2019-01-22] MEDS: Atorvastatin Calcium 40 MG Tablet PO (21:38)
[2019-01-22] MEDS: 0.9% NaCl Peripheral Flush Adult/Peds IV (21:39)
[2019-01-22] MEDS: 0.9% Normal Saline 1,000 ML 75 ML IV (21:40)
[2019-01-23] MEDS: Acetaminophen 500 MG Tablet 1000 MG PO ×3 (03:45→20:39)
[2019-01-23] MEDS: Ketoconazole Cream 1 APPLIC TOPICAL (07:13)
[2019-01-23] MEDS: NYSTATIN 500,000 UNIT/5 ML UDC 500000 UNIT PO ×4 (07:13→20:40)
[2019-01-23] MEDS: Doxazosin 4 MG Tablet PO (07:13)
[2019-01-23] MEDS: Carbidopa/Levodopa 10/100 Tablet PO ×3 (07:14→16:36)
[2019-01-23] MEDS: Clopidogrel Bisulfate 75 MG Tablet PO (07:14)
[2019-01-23] MEDS: Nystatin Powder 15gm Bottle 1 APPLIC TOPICAL ×2 (07:33→21:03)
[2019-01-23] MEDS: Aspirin E.C. 81 MG Tablet PO (07:38)
[2019-01-23] MEDS: Menthol/Lanolin/Calamine/Znox 113 GM Tube 1 APPLIC TOPICAL ×3 (07:43→21:02)
--- NOTE | 2019-01-23 08:35 | PCM.PN.RX ---
<Jarrett Sorensen C - Last Filed: 01/23/19 08:35> Progress Note - Pharmacy Subjective: [] TCU Admission Objective: Allergies No Known Allergies Allergy (Verified 01/14/19 12:59) Current Medications Generic Name Dose Route Start Last Admin Trade Name Freq PRN Reason Stop Dose Admin Acetaminophen 1,000 mg 01/20/19 00:00 01/23/19 03:45 Tylenol PO 1,000 mg Q6H PRN PRN Administration MILD PAIN (1-3/10) Aspirin 81 mg 01/20/19 08:00 01/23/19 07:38 Ecotrin PO 81 mg DAILYCM JOSE CARLOS Administration Atorvastatin Calcium 40 mg 01/19/19 22:00 01/22/19 21:38 Lipitor PO 40 mg QHS JOSE CARLOS Administration Bisacodyl 10 mg 01/20/19 00:01 01/21/19 05:40 Dulcolax PO 10 mg DAILY PRN Administration Constipation Calamine/Phenol 1 applic 01/20/19 22:00 01/23/19 07:43 Calmoseptine Ointment TOPICAL 1 applicatio TID JOSE CARLOS Administration Protocol Carbidopa/Levodopa 1 tablet 01/21/19 16:45 01/23/19 07:14 Sinemet PO 1 tablet TIDAC JOSE CARLOS Administration Clopidogrel Bisulfate 75 mg 01/20/19 06:00 01/23/19 07:14 Plavix PO 75 mg DAILY JOSE CARLOS Administration Doxazosin Mesylate 4 mg 01/20/19 06:00 01/23/19 07:13 Cardura PO 4 mg DAILY JOSE CARLOS Administration Sodium Chloride 1,000 mls @ 75 mls/hr 01/22/19 20:45 01/22/19 21:40 IV 75 mls/hr .[id number] JOSE CARLOS Administration Ketoconazole 1 applic 01/22/19 06:00 01/23/19 07:13 Nizoral TOPICAL 1 applic DAILY JOSE CARLOS Administration Protocol Mirtazapine 7.5 mg 01/22/19 22:00 01/22/19 21:37 Remeron PO 7.5 mg QHS JOSE CARLOS Administration Nystatin 1 applic 01/20/19 22:00 01/23/19 07:33 Mycostatin Powder TOPICAL 1 applicatio 0600,2200 JOSE CARLOS Administration Protocol Nystatin 500,000 unit 01/20/19 22:00 01/23/19 07:13 Nystatin PO 01/30/19 22:01 500,000 unit 4X/DAY JOSE CARLOS Administration Ondansetron HCl 4 mg 01/20/19 17:10 01/22/19 21:37 Zofran Odt PO 4 mg Q8H PRN PRN Administration NAUSEA Polyethylene Glycol 17 gm 01/20/19 06:00 01/23/19 07:04 Miralax PO Not Given DAILY JOSE CARLOS Senna/Docusate Sodium 1 tablet 01/20/19 06:00 01/23/19 07:38 Senokot-S, Tamar-Colace PO Not Given BID JOSE CARLOS Sodium Chloride 10 - 40 ml 01/21/19 17:00 01/22/19 21:39 IV 10 ml UD PRN Administration SALINE FLUSH Tuberculin PPD 5 tu 01/27/19 10:00 Tubersol, Aplisol, Ppd ID 01/27/19 10:01 X1 ONE Problem List (Last Updated 01/14/19 @ 16:41 by Dieter Mcleod DO) Weakness (Acute) Debility (Acute) Encephalopathy (Acute) Dehydration (Acute) Osteoarthritis of knee (Chronic) Insomnia (Chronic) BPH (benign prostatic hyperplasia) (Chronic) Vital Signs Temp Pulse Resp BP Pulse Ox 98.2 F 78 18 103/67 94 01/22/19 15:21 01/22/19 15:21 01/22/19 15:21 01/22/19 15:21 01/22/19 15:21 Oxygen Flow Rate (L/min) 2 Oxygen Delivery Method Nasal Cannula Weight: 67 kg Body Mass Index (BMI) 21.8 Sodium 143 mmol/L (136-145) 01/20/19 05:30 Potassium 3.7 mmol/L (3.5-5.1) 01/20/19 05:30 Chloride 113 mmol/L (98-107) H 01/20/19 05:30 Carbon Dioxide 19.0 mmol/L (21.0-32.0) L 01/20/19 05:30 11 (5-15) 01/20/19 05:30 BUN 54 mg/dL (7-18) H 01/20/19 05:30 1.28 mg/dL (0.70-1.30) 01/20/19 05:30 Est GFR (MDRD) Af Amer 69 mL/min (>60) 01/20/19 05:30 Est GFR (MDRD) Non-Af 57 mL/min (>60) L 01/20/19 05:30 42.2 RATIO (10-20) H 01/20/19 05:30 Glucose 117 mg/dL (74-106) H 01/20/19 05:30 Assessment/Plan: 1) Pain: Acetaminophen 1000mg po q6h prn for mild pain. Please continue to monitor prn usage and for signs/symptoms of increased/decreased pain. 2) Hyperlipidemia: Atorvastatin 40mg po qhs. Pt's Lipid panel is within normal limits. Please continue to monitor. Pt's LFTs are elevated. Please continue to monitor 3) BPH: Doxazosin 4mg po daily. Please continue to monitor for signs/symptoms of BPH 4) Nausea: Ondansetron 4mg po q8h prn for nausea. Please continue to monitor prn usage and for signs/symptoms of increased nausea 5) CAD: Clopidogrel 75mg po daily, Aspirin 81mg po daily. Please continue to monitor for signs/symptoms of bleeding. Pt's pulse rate is normal, pt's pulse rhythm is irregular. Please continue to monitor. Pt's average blood pressure is 106/70.8. 6) Sinemet 10/100 1 po tid before meals for parkinson's like symptoms. Please continue to monitor pt Psychotropic Medications: Mirtazapine 7.5mg po qhs. GDR not appropriate at this time due to pt's lack of eating Unnecessary Medications: Bowel Regimen: Bisacodyl 10mg po daily prn for constipation, Miralax 17gm po daily, Senna/Docusate 1 tablet po bid. Please continue to monitor prn usage, and for signs/symptoms of constipation/diarrhea Date of Note:: 01/23/19 - Provider Comments Provider responsibility: Provider responsible to enter orders to implement recommendations <Wale Chen Chi - Last Filed: 01/23/19 14:34> Progress Note - Pharmacy Subjective: [] Objective: Allergies No Known Allergies Allergy (Verified 01/14/19 12:59) Current Medications Generic Name Dose Route Start Last Admin Trade Name Freq PRN Reason Stop Dose Admin Acetaminophen 1,000 mg 01/20/19 00:00 01/23/19 10:12 Tylenol PO 1,000 mg Q6H PRN PRN Administration MILD PAIN (1-3/10) Aspirin 81 mg 01/20/19 08:00 01/23/19 07:38 Ecotrin PO 81 mg DAILYCM JOSE CARLOS Administration Atorvastatin Calcium 40 mg 01/19/19 22:00 01/22/19 21:38 Lipitor PO 40 mg QHS JOSE CARLOS Administration Bisacodyl 10 mg 01/20/19 00:01 01/21/19 05:40 Dulcolax PO 10 mg DAILY PRN Administration Constipation Calamine/Phenol 1 applic 01/20/19 22:00 01/23/19 11:38 Calmoseptine Ointment TOPICAL 1 applicatio TID [facility] Administration Protocol Carbidopa/Levodopa 1 tablet 01/21/19 16:45 01/23/19 11:37 Sinemet PO 1 tablet TIDAC JOSE CARLOS Administration Clopidogrel Bisulfate 75 mg 01/20/19 06:00 01/23/19 07:14 Plavix PO 75 mg DAILY JOSE CARLOS Administration Doxazosin Mesylate 4 mg 01/20/19 06:00 01/23/19 07:13 Cardura PO 4 mg DAILY JOSE CARLOS Administration Sodium Chloride 1,000 mls @ 75 mls/hr 01/22/19 20:45 01/23/19 10:05 IV 75 mls/hr .[id number] JOSE CARLOS Administration Ketoconazole 1 applic 01/22/19 06:00 01/23/19 07:13 Nizoral TOPICAL 1 applic DAILY [facility] Administration Protocol Mirtazapine 7.5 mg 01/22/19 22:00 01/22/19 21:37 Remeron PO 7.5 mg QHS [facility] Administration Nystatin 1 applic 01/20/19 22:00 01/23/19 07:33 Mycostatin Powder TOPICAL 1 applicatio 0600,2200 [facility] Administration Protocol Nystatin 500,000 unit 01/20/19 22:00 01/23/19 11:37 Nystatin PO 01/30/19 22:01 500,000 unit 4X/DAY JOSE CARLOS Administration Ondansetron HCl 4 mg 01/20/19 17:10 01/22/19 21:37 Zofran Odt PO 4 mg Q8H PRN PRN Administration NAUSEA Polyethylene Glycol 17 gm 01/20/19 06:00 01/23/19 07:04 Miralax PO Not Given DAILY [facility] Senna/Docusate Sodium 1 tablet 01/20/19 06:00 01/23/19 07:38 Senokot-S, Tamar-Colace PO Not Given BID JOSE CARLOS Sodium Chloride 10 - 40 ml 01/21/19 17:00 01/22/19 21:39 IV 10 ml UD PRN Administration SALINE FLUSH Tuberculin PPD 5 tu 01/27/19 10:00 Tubersol, Aplisol, Ppd ID 01/27/19 10:01 X1 ONE Problem List (Last Updated 01/14/19 @ 16:41 by Dieter Mcleod DO) Weakness (Acute) Debility (Acute) Encephalopathy (Acute) Dehydration (Acute) Osteoarthritis of knee (Chronic) Insomnia (Chronic) BPH (benign prostatic hyperplasia) (Chronic) Vital Signs Temp Pulse Resp BP Pulse Ox 98.2 F 78 18 103/67 94 01/22/19 15:21 01/22/19 15:21 01/22/19 15:21 01/22/19 15:21 01/22/19 15:21 Oxygen Flow Rate (L/min) 2 Oxygen Delivery Method Nasal Cannula Weight: 67 kg Body Mass Index (BMI) 21.8 Sodium 143 mmol/L (136-145) 01/20/19 05:30 Potassium 3.7 mmol/L (3.5-5.1) 01/20/19 05:30 Chloride 113 mmol/L (98-107) H 01/20/19 05:30 Carbon Dioxide 19.0 mmol/L (21.0-32.0) L 01/20/19 05:30 11 (5-15) 01/20/19 05:30 BUN 54 mg/dL (7-18) H 01/20/19 05:30 1.28 mg/dL (0.70-1.30) 01/20/19 05:30 Est GFR (MDRD) Af Amer 69 mL/min (>60) 01/20/19 05:30 Est GFR (MDRD) Non-Af 57 mL/min (>60) L 01/20/19 05:30 42.2 RATIO (10-20) H 01/20/19 05:30 Glucose 117 mg/dL (74-106) H 01/20/19 05:30 Assessment/Plan: Psychotropic Medications: Unnecessary Medications: Bowel Regimen: - Provider Comments Provider responsibility: Provider responsible to enter orders to implement recommendations Provider Comments to Recommendations by Pharmacy: Agree
[2019-01-23] MEDS: 0.9% Normal Saline 1,000 ML 75 ML IV ×2 (10:05→23:45)
[2019-01-23 16:00] VITALS: BP 107/70; PULSE 68; RESP 20; TEMP 37.1; O2SAT 94
[2019-01-23] MEDS: Senna/Docusate Sodium 1 Tablet PO (16:36)
[2019-01-23] MEDS: Atorvastatin Calcium 40 MG Tablet PO (20:39)
[2019-01-23] MEDS: Ondansetron ODT 4 MG Tablet PO (20:40)
[2019-01-23] MEDS: Mirtazapine 15 MG Tablet 7.5 MG PO (20:40)
[2019-01-24] MEDS: Menthol/Lanolin/Calamine/Znox 113 GM Tube 1 APPLIC TOPICAL ×3 (05:29→20:02)
[2019-01-24] MEDS: Senna/Docusate Sodium 1 Tablet PO (05:30)
[2019-01-24] MEDS: Clopidogrel Bisulfate 75 MG Tablet PO (05:30)
[2019-01-24] MEDS: Doxazosin 4 MG Tablet PO (05:30)
[2019-01-24] MEDS: Polyethylene Glycol 3350 17 GM PACKET PO (05:30)
[2019-01-24] MEDS: Nystatin Powder 15gm Bottle 1 APPLIC TOPICAL ×2 (05:30→20:03)
[2019-01-24] MEDS: NYSTATIN 500,000 UNIT/5 ML UDC 500000 UNIT PO ×4 (05:30→19:57)
[2019-01-24] MEDS: Carbidopa/Levodopa 10/100 Tablet PO ×3 (05:30→16:26)
[2019-01-24] MEDS: Bisacodyl 5 MG Tablet 10 MG PO (05:36)
[2019-01-24] MEDS: Ketoconazole Cream 1 APPLIC TOPICAL (06:09)
--- NOTE | 2019-01-24 07:19 | NURSING ---
Addendum entered by Susan Soriano 01/24/19 10:25: Dr Chen updated on edema, new order to DC IVF. Elevated scrotum on sheets Original Note: Pt with increase penial and scrotal edema. +3 pitting edema noted. Will update Dr Chen.
[2019-01-24] MEDS: Aspirin E.C. 81 MG Tablet PO (08:31)
[2019-01-24 13:30] VITALS: O2SAT 92
[2019-01-24 16:00] VITALS: BP 91/64; PULSE 77; RESP 18; TEMP 36.7; O2SAT 95
[2019-01-24] MEDS: Mirtazapine 15 MG Tablet 7.5 MG PO (19:56)
[2019-01-24] MEDS: Atorvastatin Calcium 40 MG Tablet PO (19:56)
[2019-01-24] MEDS: Acetaminophen 500 MG Tablet 1000 MG PO (22:19)
[2019-01-24] MEDS: Ondansetron ODT 4 MG Tablet PO (22:29)
[2019-01-25] MEDS: Nystatin Powder 15gm Bottle 1 APPLIC TOPICAL ×2 (04:42→20:16)
[2019-01-25] MEDS: Menthol/Lanolin/Calamine/Znox 113 GM Tube 1 APPLIC TOPICAL ×3 (04:42→20:16)
[2019-01-25] MEDS: Ketoconazole Cream 1 APPLIC TOPICAL (04:43)
[2019-01-25] MEDS: NYSTATIN 500,000 UNIT/5 ML UDC 500000 UNIT PO ×4 (04:43→20:10)
[2019-01-25] MEDS: Carbidopa/Levodopa 10/100 Tablet PO ×3 (06:52→16:29)
[2019-01-25] MEDS: Doxazosin 4 MG Tablet PO (06:52)
[2019-01-25] MEDS: Clopidogrel Bisulfate 75 MG Tablet PO (06:52)
[2019-01-25 06:53] VITALS: O2SAT 94
[2019-01-25] MEDS: Aspirin E.C. 81 MG Tablet PO (08:46)
[2019-01-25] MEDS: Ondansetron ODT 4 MG Tablet PO (08:47)
[2019-01-25] MEDS: 0.9% NaCl Peripheral Flush Adult/Peds IV (12:56)
--- NOTE | 2019-01-25 15:20 | CHAPLAIN ---
patient is sleeping, left a calling card
[2019-01-25 16:00] VITALS: BP 103/70; PULSE 69; RESP 20; TEMP 36.8; O2SAT 96
[2019-01-25] MEDS: Atorvastatin Calcium 40 MG Tablet PO (20:10)
[2019-01-25] MEDS: Mirtazapine 15 MG Tablet 7.5 MG PO (20:10)
[2019-01-26 05:17] VITALS: BP 103/69; PULSE 76
[2019-01-26] MEDS: NYSTATIN 500,000 UNIT/5 ML UDC 500000 UNIT PO ×3 (05:18→20:29)
[2019-01-26] MEDS: Clopidogrel Bisulfate 75 MG Tablet PO (05:19)
[2019-01-26] MEDS: Carbidopa/Levodopa 10/100 Tablet PO ×2 (05:19→11:14)
[2019-01-26] MEDS: Doxazosin 4 MG Tablet PO (05:19)
[2019-01-26] MEDS: Nystatin Powder 15gm Bottle 1 APPLIC TOPICAL ×2 (05:21→20:30)
[2019-01-26] MEDS: Ketoconazole Cream 1 APPLIC TOPICAL (05:21)
[2019-01-26] MEDS: Menthol/Lanolin/Calamine/Znox 113 GM Tube 1 APPLIC TOPICAL ×3 (05:22→20:29)
[2019-01-26 06:44] VITALS: O2SAT 96
[2019-01-26] MEDS: Aspirin E.C. 81 MG Tablet PO (09:22)
[2019-01-26] MEDS: Acetaminophen 500 MG Tablet 1000 MG PO (09:22)
[2019-01-26] MEDS: Ondansetron ODT 4 MG Tablet PO (14:50)
--- NOTE | 2019-01-26 15:22 | CASEMGMT ---
Addendum entered by Dinorah Cortes 01/27/19 11:16: Family would like referral sent to [facility]. Referral made - beds are available. Will await outcome. Addendum entered by Dinorah Cortes 01/27/19 08:49: Son and decided to have SW refer to [facility] for LTP. Referral made. They do have any male LTP beds available. Left message with of outcome to provide additional facilities for SW to refer to. Original Note: Social Work IDT met with patient, and son for care plan meeting. Discussed patient's progress in therapy. Pt has difficulty participating in therapy as he is very weak and tired. Pt is max x2 assist for all ADLs and transfers. Pt is on mechanical soft diet and nectar think liquids as he has trouble swallowing and high risk for aspiration. Pt has very poor appetite and p.o. intake - interventions are in place to assist with caloric intake. Pt needs assistance being fed and cues during meal times. During meeting, pt was not awake, mouth breathing and on O2. Spoke with and son after the meeting to further discuss patient's discharge plans, therapy or comfort care measures. Discussed at length the end of life indicating signs, the overall pain, restless and fatigue pt is exhibiting. and son both explained they've noticed these signs and the decline. Explained DC options - home with 24/7 private duty care, LTP or potentially Inpatient Hospice Unit. Explained at length hospice and their role in any setting. Discussed with her concerns with nursing homes - educated her to Medicare.gov and the resources to use for selecting a SNF that would fit the pts needs. and son unsure therapy is beneficial at this point - explained Medicare benefit and paying for skilled services. Pt can enroll in hospice at home or at a LTC facility. Provided emotional and verbal support during this conversation to both parties. and son wanted to digest the information and will notify this SW of decision. Will continue to follow. JC Zambrano
[2019-01-26 16:00] VITALS: BP 96/56; PULSE 74; RESP 20; TEMP 37.4; O2SAT 97
--- NOTE | 2019-01-26 16:22 | CHAPLAIN ---
Type of Pastoral Visit _x__ Initial Visit ___ Follow-up Visit ___ On-call Visit ___ General Patient Visit ___ Spiritual Assessment ___ Family Conference ___ Bereavement ___ Rapid Response ___ Code Blue ___ Other (describe below) Pastoral Care Referral From _x__ Patient _x__ Family ___ Nurse ___ Physician ___ Recyclable Materials Sorter ___ Notch Machine Operator ___ Other (describe below) Sacrament/Intervention _x__ Active listening ___ Anointing ___ Protestant ___ Bereavement ___ Communion _x__ Lissette exploration ___ _x__ Life review _x__ Prayer ___ Reconciliation ___ Sacrament of Sick _x__ Supportive presence ___ Wedding ___ Other (describe below) Pastoral Comments family members were in room and very welcoming of this security public safety officer; family gave more insights and details about patient and his spiritual needs and care; pt is willing for spiritual support but stated today I don't feel so good; family discussion reveals much of the yazidi background and they request future visits by this security public safety officer; prayer given
[2019-01-26] MEDS: Mirtazapine 15 MG Tablet 7.5 MG PO (20:30)
[2019-01-26] MEDS: Atorvastatin Calcium 40 MG Tablet PO (20:30)
[2019-01-27] MEDS: Acetaminophen 500 MG Tablet 1000 MG PO (03:11)
[2019-01-27] MEDS: Clopidogrel Bisulfate 75 MG Tablet PO (04:50)
[2019-01-27] MEDS: Carbidopa/Levodopa 10/100 Tablet PO ×3 (04:50→16:44)
[2019-01-27] MEDS: NYSTATIN 500,000 UNIT/5 ML UDC 500000 UNIT PO ×4 (04:51→20:59)
[2019-01-27] MEDS: Ketoconazole Cream 1 APPLIC TOPICAL (04:51)
[2019-01-27] MEDS: Doxazosin 4 MG Tablet PO (04:51)
[2019-01-27] MEDS: Menthol/Lanolin/Calamine/Znox 113 GM Tube 1 APPLIC TOPICAL ×3 (04:51→20:54)
[2019-01-27] MEDS: Nystatin Powder 15gm Bottle 1 APPLIC TOPICAL ×2 (04:52→20:54)
[2019-01-27 06:14] LABS: Absolute Lymphocyte Count 0.52 X10^3/uL (0.83-4.51); Absolute Neutrophil Count 12.9 X10^3/uL (2.0-7.7); Basophil# 0.01 X10^3/uL; Basophil% 0.1 % (0-1); Eosinophil# 0.07 X10^3/uL; Eosinophils% 0.5 % (0-5); Hematocrit 35.3 % (40-54); Lymphocyte # 0.52 X10^3/ul (4.0); Lymphocyte % 3.6 % (19-41); Mean Corp Hgb Conc 31.2 g/dL (32-36); Mean Corpuscular Hgb 29.8 pg (27.0-32.0); Mean Corpuscular Volume 95.7 fL (80-94); Mean Platelet Vol. 10.1 fl (6.2-12.0); Monocyte# 0.93 X10^3/uL; Monocyte% 6.4 % (0-10); NRBC Flagged by Analyzer 0 % (0-5); Neutrophil # 12.87 X10^3/uL (2.7-7.7); Neutrophil % 88.8 % (47-70); POSITIVE DIFFERENTIAL YES; Platelet Count 199 K/mm3 (150-450); RBC Distribution Width CV 15.1 % (11.6-14.6); RBC Distribution Width SD 52.5 fl (35.1-43.9); Red Blood Count 3.69 M/mm3 (4.6-6.2); White Blood Count 14.5 K/mm3 (4.4-11.0)
[2019-01-27 06:27] LABS: Anion Gap 7 (5-15); BUN 32 mg/dL (7-18); Chloride 112 mmol/L (98-107); EST Glomerular Filtration Rate 76 mL/min (>60); Est Glom Filt Rate - Afr Amer 92 mL/min (>60); Estimated Creatinine Clearance 53.04 ml/min; Glucose 131 mg/dL (74-106); Potassium 3.5 mmol/L (3.5-5.1); Sodium Level 143 mmol/L (136-145)
[2019-01-27 06:51] LABS: Differential Indicated SCAN CRITERIA MET
[2019-01-27 07:09] LABS: Differential Comment SCANNED
[2019-01-27] MEDS: Aspirin E.C. 81 MG Tablet PO (10:39)
[2019-01-27] MEDS: Tuberculin,Purif.prot.deriv. 50 TU/ML Vial 5 ML ID (11:28)
[2019-01-27 11:35] VITALS: O2SAT 96
[2019-01-27 11:38] VITALS: O2SAT 96
[2019-01-27 16:00] VITALS: BP 91/68; PULSE 74; RESP 18; TEMP 36.6; O2SAT 93
[2019-01-27] MEDS: Senna/Docusate Sodium 1 Tablet PO (16:45)
--- NOTE | 2019-01-27 17:59 | NURSING ---
Dr lott assessed pt scrotal and penile edema, new order to consult Dr Page d/t urinary retention as well. New order for lasix PO daily. Will continue to monitor edema w/lasix administration.
[2019-01-27] MEDS: Furosemide 20 MG Tablet PO (18:38)
[2019-01-27] MEDS: MELATONIN 10 MG TABLET PO (20:59)
[2019-01-27] MEDS: Mirtazapine 15 MG Tablet 7.5 MG PO (20:59)
[2019-01-27] MEDS: Atorvastatin Calcium 40 MG Tablet PO (20:59)
[2019-01-28] MEDS: Polyethylene Glycol 3350 17 GM PACKET PO (05:33)
[2019-01-28] MEDS: Furosemide 20 MG Tablet PO (05:35)
[2019-01-28] MEDS: NYSTATIN 500,000 UNIT/5 ML UDC 500000 UNIT PO ×2 (05:35→11:37)
[2019-01-28] MEDS: Doxazosin 4 MG Tablet PO (05:35)
[2019-01-28] MEDS: Clopidogrel Bisulfate 75 MG Tablet PO (05:35)
[2019-01-28] MEDS: Senna/Docusate Sodium 1 Tablet PO (05:35)
[2019-01-28] MEDS: Carbidopa/Levodopa 10/100 Tablet PO ×3 (05:35→15:49)
[2019-01-28] MEDS: Ketoconazole Cream 1 APPLIC TOPICAL (05:37)
[2019-01-28] MEDS: Menthol/Lanolin/Calamine/Znox 113 GM Tube 1 APPLIC TOPICAL ×2 (05:37→15:49)
[2019-01-28] MEDS: Nystatin Powder 15gm Bottle 1 APPLIC TOPICAL (05:38)
[2019-01-28 05:48] VITALS: PULSE 87; O2SAT 95
[2019-01-28 07:05] VITALS: O2SAT 94
[2019-01-28] MEDS: Aspirin E.C. 81 MG Tablet PO (09:12)
--- NOTE | 2019-01-28 10:39 | CASEMGMT ---
Social Work Spoke with whom decided for patient to [facility] and refer to [facility]. Referral made. Transport scheduled for 4 pm. Pt agreeable. [facility] aware. Plan: DC to [facility] 01/28 at 4 pm with [facility] JC ZambranoW
--- NOTE | 2019-01-28 13:50 | DCINST_ITS ---
- Discharge Diagnoses Current Active Problems: Current Active and Chronic Problems (Last Updated 01/14/19 @ 16:41 by Dieter Mcleod DO) Weakness (Acute) Debility (Acute) Encephalopathy (Acute) Dehydration (Acute) Osteoarthritis of knee (Chronic) Insomnia (Chronic) BPH (benign prostatic hyperplasia) (Chronic) You will use the following diet at home:: No restrictions, Regular Your food should be the consistency of: Regular Your liquids should be the consistency of: Regular/Thin Discharge Activity: Return to Normal Activity, May Shower, Use Walker Weight Bearing Status: Weight bearing as tolerated Call your doctor if you observe: Fever of 101 or Higher, Inability to urinate, Inability to have a bowel movement, Shortness of breath, Chest pain, Uncontrolled pain Allergies/Adverse Reactions: Allergies No Known Allergies Allergy (Verified 01/14/19 12:59) Medications to take at Discharge Aspirin [Aspir 81] 81 mg PO DAILY 01/14/19 Ketoconazole 1 applic TP UD 01/14/19 Terazosin HCl 5 mg PO DAILY 01/14/19 Atorvastatin Calcium [Lipitor] 40 mg PO QHS 01/19/19 Clopidogrel Bisulfate [Plavix] 75 mg PO DAILY 01/19/19 Acetaminophen [Tylenol] 1,000 mg PO Q6H PRN PRN tablet 01/28/19 Bisacodyl [Dulcolax] 10 mg PO DAILY PRN tablet 01/28/19 Carbidopa/Levodopa 10/100 [Sinemet 10/100] 1 tablet PO TIDAC tablet 01/28/19 Ensure Enlive 120 ml PO 4X/DAY liquid 01/28/19 Furosemide [Lasix] 20 mg PO DAILY tablet 01/28/19 Ketoconazole [Nizoral Cream] 1 applic TOPICAL DAILY tube 01/28/19 Melatonin 10 mg PO QHS tablet 01/28/19 Menthol/Lanolin/Calamine/Znox [Calmoseptine Ointment] 1 applic TOPICAL TID tube 01/28/19 Mirtazapine [Remeron] 7.5 mg PO QHS tablet 01/28/19 Nystatin Powder [Mycostatin Powder] 1 applic TOPICAL 0600,2200 bottle 01/28/19 Polyethylene Glycol 3350 [Miralax] 17 gm PO DAILY packet 01/28/19 Senna/Docusate Sodium [Senokot-S] 1 tablet PO BID tablet 01/28/19 Primary Care Physician: Wale Obregon [Primary Care Provider] - Please follow up with your Primary Care Physician in: As needed. Test Results: Test results from this visit will be discussed in further detail at your follow- up appointment, if applicable. Please Follow Up With: Dr. Hobson When: As needed. Please Follow Up With: Luma Maurer MD When: As needed. Proposed Discharge Date: 01/28/19
--- NOTE | 2019-01-28 13:52 | DS.PCM_ITS ---
Discharge Date and Diagnosis - Problem List Patient Problems: Active and Suspected Problems (Last Updated 01/14/19 @ 16:41 by Dieter Mcleod DO) Weakness (Acute) Debility (Acute) Encephalopathy (Acute) Dehydration (Acute) Date of Admission: 01/18/19 Date of Discharge: 01/28/19 - Primary Discharge Diagnosis Active and Suspected Problems (Last Updated 01/14/19 @ 16:41 by Dieter Mcleod DO) Weakness (Acute) Debility (Acute) Encephalopathy (Acute) Dehydration (Acute) - Secondary Discharge Diagnosis Chronic Problems (Last Updated 01/14/19 @ 16:41 by Dieter Mcleod DO) Osteoarthritis of knee (Chronic) Insomnia (Chronic) BPH (benign prostatic hyperplasia) (Chronic) Stage III chronic kidney disease (Chronic) Hospital Course and Treatment Imaging Results: 01/19/19 17:20 Diet: Cardiac/Low Cholesterol Food consistency:: Regular Liquid Consistency:: [place] Thick Diet Comments: liquids by straw, supervised by staff, HOB 90 for intake Clinical Impression(s) from Imaging Studies KUB X-Ray 01/21/19 14:10 IMPRESSION: Gaseous distention of the colon down to the rectosigmoid junction. Electronically Signed: Yoni Salinas, at 14:33 EDT , Service support , Labs (Last 48 Hours) 01/27/19 01/27/19 05:43 05:43 WBC 14.5 H RBC 3.69 L Hgb 11.0 L Hct 35.3 L MCV 95.7 H MCH 29.8 MCHC 31.2 L RDW Std Deviation 52.5 H RDW Coeff of Nicolas 15.1 H Plt Count 199 MPV 10.1 Immature Gran % (Auto) 0.600 Neut % (Auto) 88.8 H Lymph % (Auto) 3.6 L [place] % (Auto) 6.4 Eos % (Auto) 0.5 Baso % (Auto) 0.1 Absolute Neuts (auto) 12.9 H Absolute Lymphs (auto) 0.52 L Nucleated RBC % 0 Differential Comment SCANNED Sodium 143 Potassium 3.5 Chloride 112 H Carbon Dioxide 24.0 Anion Gap 7 BUN 32 H Creatinine 1.00 Estim Creat Clear Calc 53.04 Est GFR (MDRD) Af Amer 92 Est GFR (MDRD) Non-Af 76 BUN/Creatinine Ratio 32.0 H Glucose 131 H Calcium 8.0 L Operations: None Procedures: None Summary of Care Provided: The patient is a 83 year old Male with below past medical history hospitalized for NSTEMI, coronary artery disease treated medically, complicated by encephalopathy, elevated liver enzymes, admitted to TCU with debility, here for rehabilitation, strengthening, prior to discharge home with spouse. Discharge to [facility], with [facility]. Patient Problems: Active and Suspected Problems (Last Updated 01/14/19 @ 16:41 by Dieter Mcleod DO) Weakness (Acute) Debility (Acute) Encephalopathy (Acute) Dehydration (Acute) - Physical Exam Vital Signs Temp Pulse Resp BP Pulse Ox 97.9 F 87 18 91/68 94 01/27/19 16:00 01/28/19 05:48 01/27/19 16:00 01/27/19 16:00 01/28/19 07:05 Oxygen Flow Rate (L/min) 2 Oxygen Delivery Method Nasal Cannula Weight: 67 kg Body Mass Index (BMI) 21.8 Intake and Output for Last 24 Hours 01/26/19 01/27/19 01/28/19 23:59 23:59 23:59 Intake Total 360 / 360 720 / 720 360 / 360 Output Total 200 / 200 650 / 650 800 / 800 Balance 160 / 160 70 / 70 -440 / -440 Discharge Diet: No Restrictions Discharge Activity: Return to Normal Activity, May Shower, Use Walker Weight Bearing Status: Weight bearing as tolerated Call your doctor if you observe: Fever of 101 or Higher, Inability to urinate, Inability to have a bowel movement, Shortness of breath, Chest pain, Uncontrolled pain Home Medications: Medications to take at Discharge Aspirin [Aspir 81] 81 mg PO DAILY 01/14/19 Ketoconazole 1 applic TP UD 01/14/19 Terazosin HCl 5 mg PO DAILY 01/14/19 Atorvastatin Calcium [Lipitor] 40 mg PO QHS 01/19/19 Clopidogrel Bisulfate [Plavix] 75 mg PO DAILY 01/19/19 Acetaminophen [Tylenol] 1,000 mg PO Q6H PRN PRN tablet 01/28/19 Bisacodyl [Dulcolax] 10 mg PO DAILY PRN tablet 01/28/19 Carbidopa/Levodopa 10/100 [Sinemet 10/100] 1 tablet PO TIDAC tablet 01/28/19 Ensure Enlive 120 ml PO 4X/DAY liquid 01/28/19 Furosemide [Lasix] 20 mg PO DAILY tablet 01/28/19 Ketoconazole [Nizoral Cream] 1 applic TOPICAL DAILY tube 01/28/19 Melatonin 10 mg PO QHS tablet 01/28/19 Menthol/Lanolin/Calamine/Znox [Calmoseptine Ointment] 1 applic TOPICAL TID tube 01/28/19 Mirtazapine [Remeron] 7.5 mg PO QHS tablet 01/28/19 Nystatin Powder [Mycostatin Powder] 1 applic TOPICAL 0600,2200 bottle 01/28/19 Polyethylene Glycol 3350 [Miralax] 17 gm PO DAILY packet 01/28/19 Senna/Docusate Sodium [Senokot-S] 1 tablet PO BID tablet 01/28/19 Primary Care Physician: Wale Obregon [Primary Care Provider] - Please follow up with your Primary Care Physician in: As needed. Please Follow Up With: Dr. Hobson When: As needed. Please Follow Up With: Luma Maurer MD When: As needed. Disposition: Asstd Living/Non-Skill OK Minutes spent on discharge:: 35 Patient Condition:: Poor Medical Necessity - Tobacco Use Smoking Status: Former smoker Tobacco Use: Non-smoker Meaningful Use Info Meaningful Use Diagnoses (Choose all that apply): None applicable
--- NOTE | 2019-01-28 13:53 | TREXTCAR_ITS ---
- Diet 01/19/19 17:20 Diet: Cardiac/Low Cholesterol Food consistency:: Regular Liquid Consistency:: [place] Thick Diet Comments: liquids by straw, supervised by staff, [facility] 90 for intake - Routine Orders/Code Status Suppository Type: Dulcolax 10mg Suppository Frequency: Daily PRN Code Status: DNRCC - Wound(s) redness coccyx Wound Type: redness Dressing Change: VINICIUS cath puncture site right wrist Wound Type: puncture site Dressing Change: Dry Sterile Dressing - Problem/Diagnosis (1) Weakness Status: Acute Current Visit: Yes (2) Debility Status: Acute Current Visit: Yes (3) Encephalopathy Status: Acute Current Visit: Yes (4) Dehydration Status: Acute Current Visit: Yes (5) Osteoarthritis of knee Status: Chronic Current Visit: Yes (6) Insomnia Status: Chronic Current Visit: Yes (7) BPH (benign prostatic hyperplasia) Status: Chronic Current Visit: Yes (8) Right ventricular failure Status: Acute Current Visit: No (9) Lactic acidosis Status: Acute Current Visit: No (10) Elevated LFTs Status: Acute Current Visit: No (11) Acute kidney injury superimposed on CKD Status: Acute Current Visit: No (12) Stage III chronic kidney disease Status: Chronic Current Visit: No (13) NSTEMI (non-ST elevated myocardial infarction) Status: Acute Current Visit: No - Allergies/Procedures Done in Hospital Allergies/Adverse Reactions: Allergies No Known Allergies Allergy (Verified 01/14/19 12:59) - Type of Care/Length of Stay Estimated LOS: More Than 30 Days Type of Care Needed: Intermediate Rehab Potential: Poor Prognosis: Poor - Additional Orders/Day of Discharge Day of Discharge: 01/28/19 - Dietary and Speech Recommendations Dietitian Recommendations/Changes: Rec liberalized, regular diet- consistency per CABINETMAK[employer] APPRENTICE d/t PO at meals remains poor. Will provide ONS w/ medpass in addition to meals to help increase nutrition if consumed. - Follow Up Care Primary Care Physician: Wale Obregon [Primary Care Provider] - Please follow up with your Primary Care Physician in: As needed. Please Follow Up With: Dr. Hobson When: As needed. Please Follow Up With: Luma Maurer MD When: As needed.
[2019-01-28 14:55] VITALS: BP 95/62; PULSE 70; RESP 18; TEMP 36.5; O2SAT 96
--- NOTE | 2019-01-28 16:51 | NURSING ---
report called to nilo gonzales
--- NOTE | 2019-01-31 08:58 | MDS.RN ---
Information for the mds was obtained from review of the clinical record, interview of resident, staff, and direct observation of resident's care.
== END 2019-01-28 14:15 | disposition hospice, inpatient (51) | DRG 947 ==
PROVIDERS: Admitting Provider Family Medicine Geriatric Medicine; Family Provider Family Medicine; Referring Provider Family Medicine Geriatric Medicine; Visit Provider Family Medicine Geriatric Medicine
DX: R53.81 Other malaise (principal); I21.4 Non-ST elevation (NSTEMI) myocardial infarction; G93.40 Encephalopathy, unspecified; I25.10 Atherosclerotic heart disease of native coronary artery without angina pectoris; M17.10 Unilateral primary osteoarthritis, unspecified knee; N40.0 Benign prostatic hyperplasia without lower urinary tract symptoms; N18.3 Chronic kidney disease, stage 3 (moderate); M19.90 Unspecified osteoarthritis, unspecified site; Z87.891 Personal history of nicotine dependence; E78.5 Hyperlipidemia, unspecified; G30.9 Alzheimer's disease, unspecified; F02.80 Dementia in other diseases classified elsewhere, unspecified severity, without behavioral disturbance, psychotic disturbance, mood disturbance, and anxiety; Z23 Encounter for immunization
CPT/HCPCS: 36415; 74018; 80048; 85025; 92507; 92526; 92610; 97110; 97116; 97162; 97166; 97530; 97535; J7030; 90670; A4216